=== PATIENT | male | born 1950 | race Caucasian/White ===

== ENCOUNTER 2019-09-28 14:08 | Inpatient (IN) | payer OTHER ==
[~2019-09-28] VITALS: Ht 180.3 cm; Wt 100.0 kg
[2019-09-28] MEDS ORDERED: furosemide 10 MG/1 ML 10ml inj IV ONE (14:20)
[2019-09-28 14:37] LABS: BASOPHILS # (AUTO) 0.1 X10'3 (0-0.2); BASOPHILS % (AUTO) 0.6 % (0-1); EOSINOPHILS % (AUTO) 0 % (0-6); HEMATOCRIT 38.2 % (42.0-52.0); HEMOGLOBIN 12.8 g/dl (14.0-17.9); LYMPHOCYTES # (AUTO) 0.6 X10'3 (1.1-4.8); LYMPHOCYTES % (AUTO) 6.7 % (21-51); MEAN CORPUSCULAR HEMOGLOBIN 31.4 PG (27.0-31.0); MEAN CORPUSCULAR HGB CONC 33.5 g/dL (33.0-36.5); MEAN CORPUSCULAR VOLUME 93.6 FL (78-98); MEAN PLATELET VOLUME 9.7 FL (7.4-10.4); MONOCYTES # (AUTO) 0.8 X10'3 (0-0.9); MONOCYTES % (AUTO) 8.7 % (2-12); NEUTROPHILS # (AUTO) 7.8 X10'3 (1.8-7.7); PLATELET COUNT 159 X10'3 (140-440); RED BLOOD COUNT 4.09 X10'6 (4.70-6.10); RED CELL DISTRIBUTION WIDTH 15.2 % (11.5-14.5); WHITE BLOOD COUNT 9.3 X10'3 (4.5-11.0)
[2019-09-28] MEDS ORDERED: morphine 2 MG/ML inj. syringe IV ONE (14:40)
[2019-09-28 14:53] LABS: ALANINE AMINOTRANSFERASE 60 U/L (12-78); ALBUMIN 3.4 G/DL (3.4-5.0); ALBUMIN/GLOBULIN RATIO 1.1 (1.1-1.5); ALKALINE PHOSPHATASE 38 IU/L (46-116); ANION GAP 10 (8-16); ASPARTATE AMINO TRANSFERASE 66 U/L (10-37); BILIRUBIN,TOTAL 2.2 MG/DL (0.1-1.0); BLOOD UREA NITROGEN 49 MG/DL (7-18); BUN/CREATININE RATIO 24.9 (5.4-32.0); CALCIUM 8.5 MG/DL (8.5-10.1); CHLORIDE 104 MMOL/L (99-107); CREATININE 1.97 MG/DL (0.60-1.10); GLUCOSE 264 MG/DL (70-104); POTASSIUM 4.1 MMOL/L (3.5-5.1); SODIUM 140 MMOL/L (135-145); TOTAL CARBON DIOXIDE 26.4 MMOL/L (24-32); TOTAL PROTEIN 6.4 G/DL (6.4-8.2); eGFR 34 ML/MIN
[2019-09-28] MEDS ORDERED: nitroGLYCERIN 0.2mg/hour patch TD ONE (14:55)
[2019-09-28] MEDS ORDERED: furosemide 40mg/4ml inj IV ONE (14:55)
[2019-09-28 15:01] LABS: MAGNESIUM 2.2 MG/DL (1.5-2.4)
--- NOTE | 2019-09-28 15:13 | NUR ---
Per [facility], ok to give pt 1/2 cup of ice chips & water. Provided along with an oral sponge for further use.
[2019-09-28] MEDS ORDERED: mag hydrox/Alum hydrox/simeth 30ml oral suspension PO PRN (15:25)
[2019-09-28] MEDS ORDERED: ondansetron/PF 4mg/2ml inj IV PRN (15:25)
[2019-09-28] MEDS ORDERED: magnesium hydroxide 30ml (MOM) UD suspension PO PRN (15:25)
[2019-09-28] MEDS ORDERED: acetaminophen 325mg tablet PO PRN (15:25)
--- NOTE | 2019-09-28 15:29 | NUR ---
Let patient know that we were waiting on a bed assignment for him. Patient denies any needs at this time.
--- NOTE | 2019-09-28 15:38 | NUR ---
Tried to call report PCU, notified that the nurse just found out she was getting the patient and she will call back in 5 minutes.
--- NOTE | 2019-09-28 15:54 | NUR ---
Patient arrived from ED, patient scooted over to bed. Patient VS obtained and tele monitoring initiated. Patient oriented to room and given call light. Patients greggew Gurjit at bedside. Will continue to monitor.
[2019-09-28] MEDS ORDERED: ATOR40TA72 PO (16:17)
[2019-09-28] MEDS ORDERED: RIVA20TA PO (16:17)
[2019-09-28] MEDS ORDERED: CARV6.253 PO (16:17)
[2019-09-28] MEDS ORDERED: LOSA50TA64 PO (16:17)
[2019-09-28] MEDS ORDERED: FURO40TA4 PO (16:17)
[2019-09-28] MEDS ORDERED: POTA-82 PO (16:17)
--- NOTE | 2019-09-28 16:39 | NUR ---
Spoke with Dr. Urena regarding patient in A flutter. No new orders obtained regarding the a flutter. New order obtained for nystatin.
[2019-09-28 16:47] VITALS: BP 116/79
--- NOTE | 2019-09-28 18:30 | NUR ---
Problems reprioritized. Patient report given, questions answered & plan of care reviewed with Hamzah RN.
--- NOTE | 2019-09-28 18:54 | NUR ---
3026A - [facility] - Reporting Critical Trop 0.61 increased from 0.52. Pt admitted for CHF exac. No chest pain. Exertional SOB. [phone] Hamzah RN
[2019-09-28 19:00] VITALS: BP 100/64
[2019-09-28] MEDS: furosemide 40mg/4ml inj IV SCH (19:12)
[2019-09-28] MEDS: carvedilol 6.25mg tablet PO SCH (19:12)
[2019-09-28] MEDS ORDERED: heparin, porcine 5000 units/ml vial SQ SCH (20:00)
[2019-09-28] MEDS: rivaroxaban 20mg tablet PO SCH (22:10)
[2019-09-28] MEDS: nystatin 15 GM powder TP SCH (22:14)
[2019-09-28 23:00] VITALS: BP 106/78
[2019-09-29 02:46] LABS: ALBUMIN 3.2 G/DL (3.4-5.0); ANION GAP 6 (8-16); BLOOD UREA NITROGEN 42 MG/DL (7-18); CALCIUM 8.1 MG/DL (8.5-10.1); CHLORIDE 102 MMOL/L (99-107); CREATININE 1.45 MG/DL (0.60-1.10); GLUCOSE 192 MG/DL (70-104); HEMOGLOBIN 12.4 g/dl (14.0-17.9); MEAN CORPUSCULAR HGB CONC 34.2 g/dL (33.0-36.5); POTASSIUM 3.6 MMOL/L (3.5-5.1); RED BLOOD COUNT 3.92 X10'6 (4.70-6.10); SODIUM 137 MMOL/L (135-145); TOTAL CARBON DIOXIDE 28.9 MMOL/L (24-32); WHITE BLOOD COUNT 7.8 X10'3 (4.5-11.0); eGFR 48 ML/MIN
[2019-09-29 02:48] LABS: BASOPHILS % (AUTO) 0.4 % (0-1); EOSINOPHILS % (AUTO) 0.1 % (0-6); HEMATOCRIT 36.4 % (42.0-52.0); LYMPHOCYTES # (AUTO) 0.8 X10'3 (1.1-4.8); LYMPHOCYTES % (AUTO) 10.3 % (21-51); MEAN CORPUSCULAR HEMOGLOBIN 31.7 PG (27.0-31.0); MEAN CORPUSCULAR VOLUME 92.8 FL (78-98); MEAN PLATELET VOLUME 10.2 FL (7.4-10.4); MONOCYTES # (AUTO) 0.7 X10'3 (0-0.9); MONOCYTES % (AUTO) 8.6 % (2-12); NEUTROPHILS # (AUTO) 6.3 X10'3 (1.8-7.7); NEUTROPHILS % (AUTO) 80.6 % (42-75); PLATELET COUNT 141 X10'3 (140-440); RED CELL DISTRIBUTION WIDTH 15.1 % (11.5-14.5)
[2019-09-29 02:58] VITALS: BP 112/77
--- NOTE | 2019-09-29 06:18 | NUR ---
Problems reprioritized. Patient report given, questions answered & plan of care reviewed with Sudha ADDISON.
[2019-09-29 07:00] VITALS: BP 122/80
[2019-09-29] MEDS: carvedilol 6.25mg tablet PO SCH ×2 (08:48→19:30)
[2019-09-29] MEDS: furosemide 40mg/4ml inj IV SCH ×2 (08:48→19:30)
[2019-09-29] MEDS: nystatin 15 GM powder TP SCH ×3 (08:48→20:33)
[2019-09-29] MEDS ORDERED: pneumococcal 23-VAL P-sac vacc 25 mcg/0.5ml vial IMVAC ONE (10:00)
[2019-09-29 11:00] VITALS: BP 102/65
--- NOTE | 2019-09-29 12:20 | NUR ---
PAGER ID: [phone] MESSAGE: [id number]. Pt has SOB and a Hx of asthma, can I please have a respiratory eval &trxt order or breathing trxts ? Sudha [phone]
--- NOTE | 2019-09-29 13:09 | NUR ---
PAGER ID: [phone] MESSAGE: [id number], [place]. Pt c/o SOB, with a slight wheeze. Can I have breathing trxts or RT eval and trxt? Thank you Sudha [phone]
--- NOTE | 2019-09-29 13:21 | NUR ---
paged RT RE Cierra Barnes. [id number]. Per primary nurse, pt has increasing SOB and coughing. Please come and evaluate. Thank you!
--- NOTE | 2019-09-29 13:26 | NUR ---
Rm [id number], [facility]. Patient having SOB and wheezing, new RT eval and trxt order in. Please call me for eta, Thank you.
[2019-09-29] MEDS ORDERED: albuterol 2.5 MG/3 ML nebule NEB PRN (13:45)
[2019-09-29] MEDS ORDERED: albuterol 2.5 MG/3 ML nebule ONE (13:54)
[2019-09-29 15:00] VITALS: BP 110/69
[2019-09-29 18:00] VITALS: BP 125/76
--- NOTE | 2019-09-29 18:41 | NUR ---
Problems reprioritized. Patient report given, questions answered & plan of care reviewed with Liana RN. Patient alert and oriented and stable for transfer of care. Family at bedside.
[2019-09-29] MEDS: rivaroxaban 20mg tablet PO SCH (20:33)
[2019-09-29 22:00] VITALS: BP 103/67
[2019-09-30] VITALS (7 sets, daily range): BP systolic 88–126; BP diastolic 61–77
[2019-09-30 05:24] LABS: CHLORIDE 99 MMOL/L (99-107); GLUCOSE 156 MG/DL (70-104); POTASSIUM 3.3 MMOL/L (3.5-5.1); SODIUM 137 MMOL/L (135-145); TOTAL CARBON DIOXIDE 32.2 MMOL/L (24-32)
[2019-09-30 05:25] LABS: ALBUMIN 3.2 G/DL (3.4-5.0); ANION GAP 6 (8-16); BLOOD UREA NITROGEN 40 MG/DL (7-18); BUN/CREATININE RATIO 30.1 (5.4-32.0); CALCIUM 8.2 MG/DL (8.5-10.1); CREATININE 1.33 MG/DL (0.60-1.10); eGFR 53 ML/MIN
[2019-09-30 05:32] LABS: BASOPHILS % (AUTO) 0.3 % (0-1); EOSINOPHILS # (AUTO) 0.1 X10'3 (0-0.9); EOSINOPHILS % (AUTO) 0.7 % (0-6); HEMATOCRIT 36.6 % (42.0-52.0); HEMOGLOBIN 12.5 g/dl (14.0-17.9); LYMPHOCYTES # (AUTO) 1.3 X10'3 (1.1-4.8); LYMPHOCYTES % (AUTO) 14.4 % (21-51); MEAN CORPUSCULAR HEMOGLOBIN 31.7 PG (27.0-31.0); MEAN CORPUSCULAR HGB CONC 34.2 g/dL (33.0-36.5); MEAN CORPUSCULAR VOLUME 92.6 FL (78-98); MEAN PLATELET VOLUME 9.9 FL (7.4-10.4); MONOCYTES # (AUTO) 0.5 X10'3 (0-0.9); NEUTROPHILS % (AUTO) 78.6 % (42-75); PLATELET COUNT 136 X10'3 (140-440); RED BLOOD COUNT 3.95 X10'6 (4.70-6.10); RED CELL DISTRIBUTION WIDTH 15.3 % (11.5-14.5); WHITE BLOOD COUNT 8.9 X10'3 (4.5-11.0)
--- NOTE | 2019-09-30 07:11 | NUR ---
Patient in room PCU 3026. I have received report from Liana RN and had the opportunity to ask questions and assume patient care. Patient resting in bed, unlabored respirations, offers no complaints, will continue to monitor.
[2019-09-30] MEDS: furosemide 40mg/4ml inj IV SCH ×2 (08:07→20:24)
[2019-09-30] MEDS: nystatin 15 GM powder TP SCH ×3 (08:07→20:24)
[2019-09-30] MEDS: carvedilol 6.25mg tablet PO SCH ×2 (08:07→20:23)
[2019-09-30] MEDS ORDERED: potassium Cl 20 mEq SR tablet PO STA (11:50)
--- NOTE | 2019-09-30 18:30 | NUR ---
Problems reprioritized. Patient report given, questions answered & plan of care reviewed with Benton ADDISON.
--- NOTE | 2019-09-30 18:36 | NUR ---
Patient in room PCU 3027. I have received report from Sudha ADDISON and had the opportunity to ask questions and assume patient care.
[2019-09-30] MEDS: rivaroxaban 20mg tablet PO SCH (20:23)
[2019-09-30] MEDS: potassium Cl 20 mEq SR tablet PO SCH (20:23)
[2019-10-01] MEDS: benzonatate 100mg capsule PO PRN ×2 (01:13→21:47)
[2019-10-01 02:52] VITALS: BP 122/79
[2019-10-01 05:03] LABS: BASOPHILS % (AUTO) 0.2 % (0-1); EOSINOPHILS # (AUTO) 0.1 X10'3 (0-0.9); EOSINOPHILS % (AUTO) 1.4 % (0-6); HEMATOCRIT 37.6 % (42.0-52.0); HEMOGLOBIN 12.7 g/dl (14.0-17.9); LYMPHOCYTES # (AUTO) 1.1 X10'3 (1.1-4.8); LYMPHOCYTES % (AUTO) 12.1 % (21-51); MEAN CORPUSCULAR HEMOGLOBIN 31.4 PG (27.0-31.0); MEAN CORPUSCULAR HGB CONC 33.7 g/dL (33.0-36.5); MEAN CORPUSCULAR VOLUME 93.3 FL (78-98); MEAN PLATELET VOLUME 10.1 FL (7.4-10.4); MONOCYTES # (AUTO) 0.5 X10'3 (0-0.9); MONOCYTES % (AUTO) 5.8 % (2-12); NEUTROPHILS # (AUTO) 7.6 X10'3 (1.8-7.7); NEUTROPHILS % (AUTO) 80.5 % (42-75); PLATELET COUNT 158 X10'3 (140-440); RED BLOOD COUNT 4.03 X10'6 (4.70-6.10); RED CELL DISTRIBUTION WIDTH 15.1 % (11.5-14.5); WHITE BLOOD COUNT 9.4 X10'3 (4.5-11.0)
[2019-10-01 05:24] LABS: ALBUMIN 3.3 G/DL (3.4-5.0); ANION GAP 8 (8-16); BLOOD UREA NITROGEN 37 MG/DL (7-18); BUN/CREATININE RATIO 28.9 (5.4-32.0); CALCIUM 8.6 MG/DL (8.5-10.1); CHLORIDE 99 MMOL/L (99-107); CREATININE 1.28 MG/DL (0.60-1.10); GLUCOSE 189 MG/DL (70-104); POTASSIUM 3.7 MMOL/L (3.5-5.1); SODIUM 138 MMOL/L (135-145); TOTAL CARBON DIOXIDE 31.2 MMOL/L (24-32); eGFR 56 ML/MIN
--- NOTE | 2019-10-01 06:06 | NUR ---
Problems reprioritized. Patient report given, questions answered & plan of care reviewed with Lisette ADDISON.
--- NOTE | 2019-10-01 06:15 | NUR ---
Patient in room PCU 3026. I have received report from AZAEL Orozco and had the opportunity to ask questions and assume patient care.
[2019-10-01 07:00] VITALS: BP 131/84
[2019-10-01] MEDS: carvedilol 6.25mg tablet PO SCH ×2 (07:35→21:47)
[2019-10-01] MEDS: furosemide 40mg/4ml inj IV SCH ×2 (07:35→21:47)
[2019-10-01] MEDS: nystatin 15 GM powder TP SCH ×3 (08:00→21:48)
[2019-10-01] MEDS: potassium Cl 20 mEq SR tablet PO SCH ×2 (09:26→17:34)
[2019-10-01 11:00] VITALS: BP 115/68
[2019-10-01] MEDS: atorvastatin 20mg tablet PO SCH (11:38)
[2019-10-01] MEDS: losartan 50mg tablet PO SCH (11:38)
[2019-10-01 15:00] VITALS: BP 105/70
--- NOTE | 2019-10-01 18:23 | NUR ---
Problems reprioritized. Patient report given, questions answered & plan of care reviewed with AZAEL Orozco.
--- NOTE | 2019-10-01 18:28 | NUR ---
Patient in room PCU 3026. I have received report from Lisette ADDISON and had the opportunity to ask questions and assume patient care.
[2019-10-01 18:30] VITALS: BP 109/71
[2019-10-01 21:42] VITALS: BP 103/66
[2019-10-01] MEDS: rivaroxaban 20mg tablet PO SCH (21:47)
[2019-10-02] VITALS (7 sets, daily range): BP systolic 98–117; BP diastolic 58–77
[2019-10-02 05:29] LABS: BASOPHILS % (AUTO) 0.4 % (0-1); EOSINOPHILS # (AUTO) 0.3 X10'3 (0-0.9); EOSINOPHILS % (AUTO) 2.7 % (0-6); HEMATOCRIT 37.1 % (42.0-52.0); HEMOGLOBIN 12.6 g/dl (14.0-17.9); LYMPHOCYTES # (AUTO) 1.3 X10'3 (1.1-4.8); LYMPHOCYTES % (AUTO) 13.5 % (21-51); MEAN CORPUSCULAR HEMOGLOBIN 31.3 PG (27.0-31.0); MEAN CORPUSCULAR HGB CONC 33.9 g/dL (33.0-36.5); MEAN CORPUSCULAR VOLUME 92.4 FL (78-98); MEAN PLATELET VOLUME 9.6 FL (7.4-10.4); MONOCYTES # (AUTO) 0.5 X10'3 (0-0.9); MONOCYTES % (AUTO) 5.6 % (2-12); NEUTROPHILS # (AUTO) 7.5 X10'3 (1.8-7.7); NEUTROPHILS % (AUTO) 77.8 % (42-75); PLATELET COUNT 173 X10'3 (140-440); RED BLOOD COUNT 4.02 X10'6 (4.70-6.10); RED CELL DISTRIBUTION WIDTH 15.3 % (11.5-14.5); WHITE BLOOD COUNT 9.7 X10'3 (4.5-11.0)
[2019-10-02 05:53] LABS: ALBUMIN 3.2 G/DL (3.4-5.0); ANION GAP 7 (8-16); BLOOD UREA NITROGEN 34 MG/DL (7-18); BUN/CREATININE RATIO 32.1 (5.4-32.0); CALCIUM 8.9 MG/DL (8.5-10.1); CHLORIDE 101 MMOL/L (99-107); CREATININE 1.06 MG/DL (0.60-1.10); GLUCOSE 184 MG/DL (70-104); POTASSIUM 3.8 MMOL/L (3.5-5.1); SODIUM 138 MMOL/L (135-145); TOTAL CARBON DIOXIDE 29.8 MMOL/L (24-32); eGFR 69 ML/MIN
--- NOTE | 2019-10-02 06:06 | NUR ---
Problems reprioritized. Patient report given, questions answered & plan of care reviewed with Lisette ADDISON.
--- NOTE | 2019-10-02 06:12 | NUR ---
Patient in room PCU 3026. I have received report from AZAEL Orozco and had the opportunity to ask questions and assume patient care.
[2019-10-02] MEDS: atorvastatin 20mg tablet PO SCH (07:15)
[2019-10-02] MEDS: carvedilol 6.25mg tablet PO SCH ×2 (07:16→20:10)
[2019-10-02] MEDS: furosemide 40mg/4ml inj IV SCH ×2 (07:16→20:11)
[2019-10-02] MEDS: losartan 50mg tablet PO SCH (07:16)
[2019-10-02] MEDS: nystatin 15 GM powder TP SCH ×3 (07:16→21:00)
[2019-10-02] MEDS: potassium Cl 20 mEq SR tablet PO SCH ×2 (09:25→17:49)
--- NOTE | 2019-10-02 11:17 | NUR ---
Initial: Pt admit with acute exacerbation of CHF with EF 50 to 55%. Pt currently on the heart healthy diet documented with 75-100% PO intake throughout LOS meeting nutrient needs. LBM 10/01. No nutrition diagnosis at this time. Will continue to follow. Recommendations: 1) Continue heart healthy diet 2) Routine bowel care 3) Wt per rx Addendum: 10/02/19 at [address] Amended: Links added.
--- NOTE | 2019-10-02 18:34 | NUR ---
Patient in room U 3025Z. I have received report from AZAEL Knox and had the opportunity to ask questions and assume patient care. Patient denies CP, SOB, dizziness, n/v.
--- NOTE | 2019-10-02 18:34 | NUR ---
Problems reprioritized. Patient report given, questions answered & plan of care reviewed with AZAEL Vanegas.
[2019-10-02] MEDS: benzonatate 100mg capsule PO PRN (20:10)
[2019-10-02] MEDS: rivaroxaban 20mg tablet PO SCH (20:10)
[2019-10-03 02:00] VITALS: BP 124/74
[2019-10-03 03:00] VITALS: BP 124/74
[2019-10-03] MEDS: benzonatate 100mg capsule PO PRN (04:38)
[2019-10-03 06:00] VITALS: BP 99/66
--- NOTE | 2019-10-03 06:09 | NUR ---
Problems reprioritized. Patient report given, questions answered & plan of care reviewed with AZAEL Loza. Patient stable at shift change
--- NOTE | 2019-10-03 06:10 | NUR ---
Patient in room PCU 3026. I have received report from Guilherme ADDISON and had the opportunity to ask questions and assume patient care.
[2019-10-03 06:16] LABS: BASOPHILS # (AUTO) 0.1 X10'3 (0-0.2); BASOPHILS % (AUTO) 0.5 % (0-1); EOSINOPHILS # (AUTO) 0.3 X10'3 (0-0.9); EOSINOPHILS % (AUTO) 3.2 % (0-6); HEMATOCRIT 37.8 % (42.0-52.0); HEMOGLOBIN 12.7 g/dl (14.0-17.9); LYMPHOCYTES # (AUTO) 1.4 X10'3 (1.1-4.8); LYMPHOCYTES % (AUTO) 12.5 % (21-51); MEAN CORPUSCULAR HEMOGLOBIN 31.1 PG (27.0-31.0); MEAN CORPUSCULAR HGB CONC 33.6 g/dL (33.0-36.5); MEAN CORPUSCULAR VOLUME 92.3 FL (78-98); MEAN PLATELET VOLUME 9.6 FL (7.4-10.4); MONOCYTES # (AUTO) 0.6 X10'3 (0-0.9); MONOCYTES % (AUTO) 5.6 % (2-12); NEUTROPHILS # (AUTO) 8.4 X10'3 (1.8-7.7); NEUTROPHILS % (AUTO) 78.2 % (42-75); PLATELET COUNT 208 X10'3 (140-440); RED BLOOD COUNT 4.09 X10'6 (4.70-6.10); RED CELL DISTRIBUTION WIDTH 15.1 % (11.5-14.5); WHITE BLOOD COUNT 10.8 X10'3 (4.5-11.0)
[2019-10-03 07:13] LABS: ALBUMIN 3.1 G/DL (3.4-5.0); ANION GAP 7 (8-16); BLOOD UREA NITROGEN 38 MG/DL (7-18); BUN/CREATININE RATIO 31.4 (5.4-32.0); CALCIUM 8.7 MG/DL (8.5-10.1); CHLORIDE 100 MMOL/L (99-107); CREATININE 1.21 MG/DL (0.60-1.10); GLUCOSE 177 MG/DL (70-104); POTASSIUM 3.9 MMOL/L (3.5-5.1); SODIUM 141 MMOL/L (135-145); TOTAL CARBON DIOXIDE 34.1 MMOL/L (24-32); eGFR 59 ML/MIN
[2019-10-03] MEDS: carvedilol 6.25mg tablet PO SCH (07:39)
[2019-10-03] MEDS: atorvastatin 20mg tablet PO SCH (07:39)
[2019-10-03] MEDS: losartan 50mg tablet PO SCH (07:39)
[2019-10-03] MEDS: potassium Cl 20 mEq SR tablet PO SCH (07:39)
[2019-10-03] MEDS: furosemide 40mg/4ml inj IV SCH (07:39)
[2019-10-03] MEDS: nystatin 15 GM powder TP SCH (08:00)
--- NOTE | 2019-10-03 12:30 | NUR ---
Pt transfered to [facility]. Report called to Princess at [facility]. Iv removed, canula intact. Tele-box removed and returned to tele-tech. Pt's belongings gathered and sent with pt. Pt wheeled down to lobby in wheel chair by mylene lopez and left in van with Mylene lopez to [facility].
== END 2019-10-03 12:43 | DRG 280 ==
LOC: ER 14:09 → ED HOLD 15:52 → PCU 3S 15:58
PROVIDERS: ADMIT Family Medicine; ATTEND Family Medicine
PROC: 3E0234Z Introduction of Serum, Toxoid and Vaccine into Muscle, Percutaneous Approach (ICD-10-PCS; principal; 2019-09-29)
DX: I21.A1 Myocardial infarction type 2 (principal); I50.43 Acute on chronic combined systolic (congestive) and diastolic (congestive) heart failure; I48.92 Unspecified atrial flutter; N17.9 Acute kidney failure, unspecified; I25.10 Atherosclerotic heart disease of native coronary artery without angina pectoris; E87.6 Hypokalemia; I35.0 Nonrheumatic aortic (valve) stenosis; I27.20 Pulmonary hypertension, unspecified; I11.0 Hypertensive heart disease with heart failure; J45.909 Unspecified asthma, uncomplicated; Z95.1 Presence of aortocoronary bypass graft; Z79.01 Long term (current) use of anticoagulants; Z23 Encounter for immunization; Z79.899 Other long term (current) drug therapy
CPT/HCPCS: 36415; 71045; 80048; 80053; 83735; 83880; 84484; 85025; 87081; 90732; 93005; 93306; 94640; 94667; 94668; 94760; 96374; 96375; 97110; 97116; 97161; 97530; 99285; G0378; J1940; J2270

== ENCOUNTER 2019-12-01 10:26 | Emergency (ER) | payer OTHER ==
[~2019-12-01] VITALS: Ht 181.6 cm; Wt 95.5 kg
[~2019-12-01 10:26] MED LIST: ATOR40TA72 PO; CARV6.253 PO; FURO40TA4 PO; LOSA50TA64 PO; POTA-82 PO; RIVA20TA PO
[2019-12-01 11:26] LABS: BASOPHILS # (AUTO) 0.1 X10'3 (0-0.2); BASOPHILS % (AUTO) 0.8 % (0-1); EOSINOPHILS % (AUTO) 0.2 % (0-6); HEMATOCRIT 33.8 % (42.0-52.0); HEMOGLOBIN 10.8 g/dl (14.0-17.9); LYMPHOCYTES # (AUTO) 0.6 X10'3 (1.1-4.8); LYMPHOCYTES % (AUTO) 4.4 % (21-51); MEAN CORPUSCULAR HEMOGLOBIN 29.2 PG (27.0-31.0); MEAN CORPUSCULAR HGB CONC 32.1 g/dL (33.0-36.5); MEAN PLATELET VOLUME 9.7 FL (7.4-10.4); MONOCYTES # (AUTO) 0.7 X10'3 (0-0.9); MONOCYTES % (AUTO) 5.4 % (2-12); NEUTROPHILS # (AUTO) 11.8 X10'3 (1.8-7.7); NEUTROPHILS % (AUTO) 89.2 % (42-75); PLATELET COUNT 235 X10'3 (140-440); RED BLOOD COUNT 3.72 X10'6 (4.70-6.10); RED CELL DISTRIBUTION WIDTH 18.1 % (11.5-14.5); WHITE BLOOD COUNT 13.2 X10'3 (4.5-11.0)
[2019-12-01 11:39] LABS: PARTIAL THROMBOPLASTIN TIME 34 SECONDS (22-32)
[2019-12-01 11:45] LABS: ALANINE AMINOTRANSFERASE 23 U/L (12-78); ALBUMIN 3.4 G/DL (3.4-5.0); ALBUMIN/GLOBULIN RATIO 0.9 (1.1-1.5); ALKALINE PHOSPHATASE 53 IU/L (46-116); ANION GAP 12 (8-16); ASPARTATE AMINO TRANSFERASE 25 U/L (10-37); BILIRUBIN,TOTAL 3.8 MG/DL (0.1-1.0); BLOOD UREA NITROGEN 50 MG/DL (7-18); BUN/CREATININE RATIO 24.5 (5.4-32.0); CALCIUM 9.2 MG/DL (8.5-10.1); CHLORIDE 100 MMOL/L (99-107); CREATININE 2.04 MG/DL (0.60-1.10); GLUCOSE 178 MG/DL (70-104); POTASSIUM 5.2 MMOL/L (3.5-5.1); SODIUM 135 MMOL/L (135-145); TOTAL CARBON DIOXIDE 22.7 MMOL/L (24-32); TOTAL PROTEIN 7.3 G/DL (6.4-8.2); eGFR 32 ML/MIN
[2019-12-01] MEDS ORDERED: normal saline 1000ml 1,000 ML IV ONE (12:00)
[2019-12-01] MEDS ORDERED: ceFAZolin 1GM/D5W- ADD-VANTAGE 50 ML IV ONE (12:00)
[2019-12-01 13:07] VITALS: BP 112/52
[2019-12-01] MEDS ORDERED: DOXY100C43 PO (13:32)
[2019-12-01] MEDS ORDERED: CEPH250T PO (13:32)
--- NOTE | 2019-12-01 14:13 | NUR ---
PT WAS CALLED AND MSG LEFT FOR HIM TO CALL ROSIE. PT LEFT ER BEFORE RECEIVING HIS PERSCRIPTION. PT CALLED BACK AND INFORMED THAT DR VIVAR HAD 2 PERSCRIPTIONS FOR HIM TO TAKE FOR HIS CELLULITIS. PT REQUESTED THAT RX BE CALLED INTO [facility] [address]. DOXYCYCLINE 100MG CAPSULE, 1 CAP PO Q2 HRS #20, NO REFILLS AND KEFLEX 250MG CAPSUL; 1 TAB PO Q8H #30, NO REFILLS CALLED IN TO [facility] REQUESTED. DR VIVAR NOTIFIED THAT PT CALLED BACK AND RX X2 WAS CALLED IN
== END 2019-12-01 13:09 | disposition home or self-care (01) ==
LOC: ER 10:27
DX: L03.115 Cellulitis of right lower limb (principal); I11.0 Hypertensive heart disease with heart failure; I50.9 Heart failure, unspecified; Z95.1 Presence of aortocoronary bypass graft; Z79.899 Other long term (current) drug therapy
CPT/HCPCS: 36415; 80053; 83605; 84145; 85025; 85610; 85730; 87040; 96365; 99284; J0690; J7030

== ENCOUNTER 2019-12-04 09:00 | Outpatient (CLI) | payer OTHER ==
[~2019-12-04 09:00] MED LIST changes: +CEPH250T PO; +DOXY100C43 PO
== END 2019-12-04 13:17 | disposition home or self-care (01) ==
LOC: WOUND CARE 09:00 → EDSTATUS 09:40 → WOUND CARE 13:17
PROVIDERS: ATTEND Nurse Practitioner
DX: L98.421 Non-pressure chronic ulcer of back limited to breakdown of skin (principal); L97.821 Non-pressure chronic ulcer of other part of left lower leg limited to breakdown of skin; L03.115 Cellulitis of right lower limb; E78.5 Hyperlipidemia, unspecified; I11.0 Hypertensive heart disease with heart failure; I50.9 Heart failure, unspecified; I25.2 Old myocardial infarction; Z95.1 Presence of aortocoronary bypass graft; Z79.899 Other long term (current) drug therapy
CPT/HCPCS: 93922; 93925; 93970; G0463

== ENCOUNTER 2019-12-11 09:10 | Outpatient (CLI) | payer OTHER | END 2019-12-11 10:46 | disposition home or self-care (01) | LOC: WOUND CARE 09:10 → EDSTATUS 09:40 → WOUND CARE 10:46 | PROVIDERS: ATTEND Surgery | DX: L98.421 Non-pressure chronic ulcer of back limited to breakdown of skin (principal); L97.821 Non-pressure chronic ulcer of other part of left lower leg limited to breakdown of skin; L03.115 Cellulitis of right lower limb; E78.5 Hyperlipidemia, unspecified; I11.0 Hypertensive heart disease with heart failure; I50.9 Heart failure, unspecified; I25.2 Old myocardial infarction; Z95.1 Presence of aortocoronary bypass graft; Z79.899 Other long term (current) drug therapy | CPT/HCPCS: 87070; 87075; 87077; 87102; 87186; G0463 ==

== ENCOUNTER 2019-12-18 09:21 | Outpatient (CLI) | payer OTHER ==
[~2019-12-18 09:21] MED LIST changes: -CEPH250T PO; -DOXY100C43 PO
== END 2019-12-18 10:18 | disposition home or self-care (01) ==
LOC: WOUND CARE 09:21 → EDSTATUS 09:40 → WOUND CARE 10:18
PROVIDERS: ATTEND Nurse Practitioner
DX: L97.811 Non-pressure chronic ulcer of other part of right lower leg limited to breakdown of skin (principal); L97.821 Non-pressure chronic ulcer of other part of left lower leg limited to breakdown of skin; E78.5 Hyperlipidemia, unspecified; I11.0 Hypertensive heart disease with heart failure; I50.9 Heart failure, unspecified; I25.2 Old myocardial infarction; Z95.1 Presence of aortocoronary bypass graft; Z79.899 Other long term (current) drug therapy
CPT/HCPCS: G0463

== ENCOUNTER 2019-12-25 09:25 | Outpatient (CLI) | payer OTHER | END 2019-12-25 10:05 | disposition home or self-care (01) | LOC: WOUND CARE 09:25 → EDSTATUS 09:40 → WOUND CARE 10:05 | PROVIDERS: ATTEND Nurse Practitioner | DX: L97.811 Non-pressure chronic ulcer of other part of right lower leg limited to breakdown of skin (principal); L97.821 Non-pressure chronic ulcer of other part of left lower leg limited to breakdown of skin; E78.5 Hyperlipidemia, unspecified; I11.0 Hypertensive heart disease with heart failure; I50.20 Unspecified systolic (congestive) heart failure; I25.2 Old myocardial infarction; Z95.1 Presence of aortocoronary bypass graft; Z79.899 Other long term (current) drug therapy | CPT/HCPCS: G0463 ==

== ENCOUNTER 2020-01-01 09:25 | Outpatient (CLI) | payer OTHER | END 2020-01-01 10:03 | disposition home or self-care (01) | LOC: WOUND CARE 09:25 → EDSTATUS 09:40 → WOUND CARE 10:03 | PROVIDERS: ATTEND Nurse Practitioner | DX: L97.811 Non-pressure chronic ulcer of other part of right lower leg limited to breakdown of skin (principal); L97.821 Non-pressure chronic ulcer of other part of left lower leg limited to breakdown of skin; E78.5 Hyperlipidemia, unspecified; I11.0 Hypertensive heart disease with heart failure; I50.20 Unspecified systolic (congestive) heart failure; I25.2 Old myocardial infarction; Z95.1 Presence of aortocoronary bypass graft; Z79.899 Other long term (current) drug therapy | CPT/HCPCS: G0463 ==

== ENCOUNTER 2020-01-08 09:15 | Outpatient (CLI) | payer OTHER | END 2020-01-08 09:58 | disposition home or self-care (01) | LOC: WOUND CARE 09:15 → EDSTATUS 09:40 → WOUND CARE 09:58 | PROVIDERS: ATTEND Nurse Practitioner | DX: L97.811 Non-pressure chronic ulcer of other part of right lower leg limited to breakdown of skin (principal); E78.5 Hyperlipidemia, unspecified; I11.0 Hypertensive heart disease with heart failure; I50.20 Unspecified systolic (congestive) heart failure; I25.2 Old myocardial infarction; Z95.1 Presence of aortocoronary bypass graft; Z79.899 Other long term (current) drug therapy | CPT/HCPCS: 29581 ==

== ENCOUNTER 2020-01-22 09:30 | Outpatient (CLI) | payer OTHER | END 2020-01-22 10:20 | disposition home or self-care (01) | LOC: WOUND CARE 09:30 → EDSTATUS 09:40 → WOUND CARE 10:20 | PROVIDERS: ATTEND Nurse Practitioner | DX: L97.811 Non-pressure chronic ulcer of other part of right lower leg limited to breakdown of skin (principal); E78.5 Hyperlipidemia, unspecified; I11.0 Hypertensive heart disease with heart failure; I50.20 Unspecified systolic (congestive) heart failure; I25.2 Old myocardial infarction; Z95.1 Presence of aortocoronary bypass graft; Z79.899 Other long term (current) drug therapy | CPT/HCPCS: G0463 ==

== ENCOUNTER 2020-04-20 19:02 | Inpatient (IN) | payer BC, OTHER ==
[~2020-04-20] VITALS: Ht 180.3 cm; Wt 103.5 kg
[2020-04-20 19:31] LABS: BASOPHILS % (AUTO) 0.3 % (0-1); EOSINOPHILS % (AUTO) 0.3 % (0-6); HEMATOCRIT 37.7 % (42.0-52.0); HEMOGLOBIN 11.9 g/dl (14.0-17.9); LYMPHOCYTES # (AUTO) 0.7 X10'3 (1.1-4.8); LYMPHOCYTES % (AUTO) 4.9 % (21-51); MEAN CORPUSCULAR HEMOGLOBIN 26.3 PG (27.0-31.0); MEAN CORPUSCULAR HGB CONC 31.6 g/dL (33.0-36.5); MEAN CORPUSCULAR VOLUME 83.2 FL (78-98); MEAN PLATELET VOLUME 8.5 FL (7.4-10.4); MONOCYTES # (AUTO) 0.9 X10'3 (0-0.9); MONOCYTES % (AUTO) 6.3 % (2-12); NEUTROPHILS % (AUTO) 88.2 % (42-75); PLATELET COUNT 199 X10'3 (140-440); RED BLOOD COUNT 4.53 X10'6 (4.70-6.10); RED CELL DISTRIBUTION WIDTH 20.3 % (11.5-14.5); WHITE BLOOD COUNT 14.7 X10'3 (4.5-11.0)
[2020-04-20 19:42] LABS: CLARITY,URINE CLEAR (Clear); COLOR,URINE YELLOW (Yellow); GLUCOSE, URINE NEGATIVE (Neg); KETONES,URINE NEGATIVE (Neg); LEUKOCYTE ESTERASE ,URINE NEGATIVE (Neg); NITRITES, URINE NEGATIVE (Neg); OCCULT BLOOD,URINE NEGATIVE (Neg); PROTEIN,URINE TRACE mg/dl (Neg)
[2020-04-20 19:43] LABS: UA COLLECTION TYPE STRAIGHT CATH
[2020-04-20 19:47] LABS: ALANINE AMINOTRANSFERASE 301 U/L (12-78); ALBUMIN 3.6 G/DL (3.4-5.0); ALBUMIN/GLOBULIN RATIO 1.2 (1.1-1.5); ALKALINE PHOSPHATASE 64 IU/L (46-116); ANION GAP 16 (8-16); ASPARTATE AMINO TRANSFERASE 242 U/L (10-37); BILIRUBIN,TOTAL 3.4 MG/DL (0.1-1.0); BLOOD UREA NITROGEN 91 MG/DL (7-18); BUN/CREATININE RATIO 32.9 (5.4-32.0); CALCIUM 9.1 MG/DL (8.5-10.1); CHLORIDE 99 MMOL/L (99-107); CREATININE 2.77 MG/DL (0.60-1.10); GLUCOSE 122 MG/DL (70-104); POTASSIUM 5.9 MMOL/L (3.5-5.1); SODIUM 128 MMOL/L (135-145); TOTAL PROTEIN 6.5 G/DL (6.4-8.2); eGFR 23 ML/MIN
[2020-04-20 19:50] LABS: TOTAL CELLS COUNTED 100
[2020-04-20 19:51] LABS: ANISOCYTOSIS 3+; PLATELET ESTIMATE NORMAL
[2020-04-20 19:56] LABS: TOTAL CARBON DIOXIDE 13.5 MMOL/L (24-32)
[2020-04-20 20:01] LABS: BACTERIA,URINE FEW /HPF (Neg); MUCUS STRANDS FEW /LPF (Neg); RBC,URINE NONE SEEN /HPF (0-2); SQUAMOUS EPITHELIAL CELL,UR NONE SEEN /LPF (FEW); WBC,URINE NONE SEEN /HPF (0-4)
[2020-04-20 20:02] LABS: AMORPHOUS PHOSPHATES 2+
[2020-04-20 20:03] LABS: SPERM FEW /HPF (NEGATIVE)
--- NOTE | 2020-04-20 20:18 | NUR ---
relieving RN for lunch, Dr Alonzo gave verbal order to give pt something to eat, monitor fluid intake, gave pt applesauce, 6 oz water, reanna jimenez, jitendra well, no n/v
[2020-04-20] MEDS ORDERED: furosemide 10 MG/1 ML 10ml inj IV ONE (20:20)
[2020-04-20 20:35] LABS: PARTIAL THROMBOPLASTIN TIME 35 SECONDS (22-32)
[2020-04-20] MEDS ORDERED: temazepam 15mg capsule PO PRN (21:00)
[2020-04-20 21:55] LABS: ABG BASE EXCESS -11.2 mmol/L (-2.0-2.0); ABG OXYGEN SATURATION 96.5 % (94-97); ABG PCO2 (T) 21.1 mmHg (35.0-48.0); ABG PO2 (T) 92.6 mmHg (75.0-100.0); ALLEN'S TEST POSITIVE; FCOHb 0.3 % (0.0-3.9); FMetHb 0.3 % (0.0-1.5); FO2Hb 95.9 % (94-97); TOTAL HEMOGLOBIN 12.8 G/dl (14.0-18.0)
[2020-04-20] MEDS ORDERED: metoclopramide 5 mg/ml inj IV PRN (22:05)
[2020-04-20] MEDS ORDERED: magnesium 2GM in 50ml NS 50 ML IV PRN (22:05)
[2020-04-20] MEDS ORDERED: morphine 2 MG/ML inj. syringe IV PRN ×2 (22:05)
[2020-04-20] MEDS ORDERED: magnesium 4gm in 100ml NS 100 ML IV PRN (22:05)
[2020-04-20] MEDS ORDERED: potassium CL 10mEq/100ml bag 100 ML IV PRN ×2 (22:05)
[2020-04-20] MEDS ORDERED: magnesium hydroxide 30ml (MOM) UD suspension PO PRN (22:05)
[2020-04-20] MEDS ORDERED: mag hydrox/Alum hydrox/simeth 30ml oral suspension PO PRN (22:05)
[2020-04-20] MEDS ORDERED: magnesium Cl slow-release 64mg tablet PO PRN (22:05)
[2020-04-20] MEDS ORDERED: bisacodyl 10mg suppository rectal RC PRN (22:05)
[2020-04-20] MEDS ORDERED: potassium Cl 20 mEq SR tablet PO PRN ×2 (22:05)
[2020-04-20] MEDS ORDERED: ondansetron/PF 4mg/2ml inj IV PRN (22:05)
--- NOTE | 2020-04-20 22:30 | NUR ---
Patient in room PCU 3013. I have received report from Garland ADDISON in ER and had the opportunity to ask questions and assume patient care.
[2020-04-20 22:35] LABS: HEMOGLOBIN A1C 7.3 % (4.5-6.2)
[2020-04-20 22:38] LABS: MAGNESIUM 3.1 MG/DL (1.5-2.4); PHOSPHORUS 6.2 MG/DL (2.3-4.5)
--- NOTE | 2020-04-20 22:50 | NUR ---
pt arrived to PCU unit from ER, pt is alert and oriented, pt denies any chest pain and is not in any respiratory distress at this time, will continue to monitor pt closely
[2020-04-20 23:00] VITALS: BP 108/58
[2020-04-20] MEDS: normal saline 1000ml 1,000 ML IV SCH (23:03)
[2020-04-20] MEDS: CefTRIAXone/D5W-Rocephin 1gm 50 ML IV SCH (23:03)
--- NOTE | 2020-04-20 23:48 | NUR ---
PAGER ID: [phone] MESSAGE: Lv Keira [id number] admitted with Nstemi, pt 3 HR trop is 0.26 slightly more elevated from before, which was 0.24 thank you nicole ADDISON [phone]
--- NOTE | 2020-04-20 23:54 | NUR ---
pt has reddened bilateral inner groin, tried to apply calazime cream to help protect skin, pt stated it was burning and requested it be removed. wound care order in place for pt, will continue to monitor pt
[2020-04-21 02:00] VITALS: BP 105/69
[2020-04-21 02:36] LABS: ALANINE AMINOTRANSFERASE 348 U/L (12-78); ALBUMIN 3.5 G/DL (3.4-5.0); ALBUMIN/GLOBULIN RATIO 0.9 (1.1-1.5); ALKALINE PHOSPHATASE 61 IU/L (46-116); ANION GAP 13 (8-16); ASPARTATE AMINO TRANSFERASE 274 U/L (10-37); BILIRUBIN,TOTAL 3.4 MG/DL (0.1-1.0); BLOOD UREA NITROGEN 88 MG/DL (7-18); BUN/CREATININE RATIO 33.7 (5.4-32.0); CALCIUM 8.8 MG/DL (8.5-10.1); CHLORIDE 99 MMOL/L (99-107); CHOL/HDL RATIO 5.8 (0.00-4.99); CHOLESTEROL 75 MG/DL (0-200); CREATININE 2.61 MG/DL (0.60-1.10); GLUCOSE 138 MG/DL (70-104); HDL CHOLESTEROL 13 MG/DL (35-60); LDL CHOLESTEROL 62 MG/DL (50-100); MAGNESIUM 2.8 MG/DL (1.5-2.4); PHOSPHORUS 6.1 MG/DL (2.3-4.5); POTASSIUM 5.2 MMOL/L (3.5-5.1); SODIUM 129 MMOL/L (135-145); TOTAL CARBON DIOXIDE 16.9 MMOL/L (24-32); TOTAL PROTEIN 7.2 G/DL (6.4-8.2); TRIGLYCERIDES 75 MG/DL (20-135); eGFR 24 ML/MIN
--- NOTE | 2020-04-21 02:59 | NUR ---
PAGER ID: [phone] MESSAGE: Lv Barnes 3013A 6HR trop is 0.28 thank you nicole ADDISON [phone]
[2020-04-21 06:00] VITALS: BP 99/62
--- NOTE | 2020-04-21 06:06 | NUR ---
Problems reprioritized. Patient report given, questions answered & plan of care reviewed with Marcie ADDISON.
--- NOTE | 2020-04-21 06:07 | NUR ---
Patient in room PCU 3013. I have received report from Kimberly ADDISON and had the opportunity to ask questions and assume patient care.
[2020-04-21 07:11] LABS: BASOPHILS # (AUTO) 0.1 X10'3 (0-0.2); BASOPHILS % (AUTO) 0.5 % (0-1); EOSINOPHILS % (AUTO) 0.3 % (0-6); HEMATOCRIT 37.4 % (42.0-52.0); HEMOGLOBIN 11.7 g/dl (14.0-17.9); LYMPHOCYTES # (AUTO) 0.9 X10'3 (1.1-4.8); LYMPHOCYTES % (AUTO) 6.2 % (21-51); MEAN CORPUSCULAR HEMOGLOBIN 25.9 PG (27.0-31.0); MEAN CORPUSCULAR HGB CONC 31.3 g/dL (33.0-36.5); MEAN CORPUSCULAR VOLUME 82.5 FL (78-98); MEAN PLATELET VOLUME 8.5 FL (7.4-10.4); MONOCYTES # (AUTO) 0.8 X10'3 (0-0.9); MONOCYTES % (AUTO) 5.8 % (2-12); NEUTROPHILS # (AUTO) 12.2 X10'3 (1.8-7.7); NEUTROPHILS % (AUTO) 87.2 % (42-75); PLATELET COUNT 175 X10'3 (140-440); RED BLOOD COUNT 4.53 X10'6 (4.70-6.10); RED CELL DISTRIBUTION WIDTH 20.3 % (11.5-14.5)
[2020-04-21] MEDS: K and/or MAG REPLACEMENT MC SCH ×2 (07:11→19:38)
[2020-04-21] MEDS: normal saline 1000ml 1,000 ML IV SCH (07:19)
[2020-04-21] MEDS: heparin, porcine 5000 units/ml vial SQ SCH ×2 (07:20→19:59)
[2020-04-21 07:40] LABS: ANISOCYTOSIS 3+; BURR CELLS 2+; ELLIPTOCYTES FEW; PLATELET ESTIMATE NORMAL; SCHISTOCYTES FEW
[2020-04-21] MEDS: sodium bicarbonate (8.4%) inj. 100 MEQ in dextrose 5%-water 1,000 ML IV SCH ×2 (09:08→19:59)
--- NOTE | 2020-04-21 10:10 | NUR ---
Patient left the unit to go down to CT
--- NOTE | 2020-04-21 10:28 | NUR ---
Patient arrived back from CT
--- NOTE | 2020-04-21 10:37 | NUR ---
Sent a page to Dr Giuseppe sapp PAGER ID: [phone] MESSAGE: Marcie ADDISON [phone] [id number] E Molly, pt c/o SOB, NaBicarb running at 100ml/hr, PBNP >30,000, do you want to add some Lasix? or maybe slow the fluids? thanks Addendum: 04/21/20 at 1040 by Yara Cruz RN Spoke w Dr Chin via telephone, aware of situation, no new orders received, will continue to monitor the patient closely.
[2020-04-21 11:00] VITALS: BP 100/51
--- NOTE | 2020-04-21 11:10 | NUR ---
Spoke w Dr Chin re this patient, pt c/o 12/11 pain, states wants Tylenol, received orders for Tylenol but for ONLY 1500mg/day due to LFTs. Will continue to monitor closely.
[2020-04-21] MEDS ORDERED: acetaminophen 325mg tablet PO PRN (11:15)
--- NOTE | 2020-04-21 13:40 | NUR ---
Spoke with patients son via telephone and updated him on the patients plan of care, will continue to monitor the patient closely.
--- NOTE | 2020-04-21 14:04 | NUR ---
Sent a page to Dr Giuseppe sapp PAGER ID: [phone] MESSAGE: Marcie ADDISON [phone] [id number] E Molly, HgbA1C 7.3, POC glucose 235, pt states he is not a diabetic, do you want me to order a CC diet and hyper/hypoglycemia orders? thanks Addendum: 04/21/20 at 1405 by Yara Cruz RN Spoke to Dr Chin via telephone, recieved orders to start CC diet and add the hyper/hypoglycemia orders, will continue to monitor the patient closely.
[2020-04-21] MEDS ORDERED: dextrose ORAL solution 15 GM/59 ML bottle PO PRN ×2 (14:10)
[2020-04-21] MEDS ORDERED: glucagon, human recombinant 1mg kit SUBCUT PRN (14:10)
[2020-04-21] MEDS ORDERED: MESSAGE TO PHARMACY PO ONE (14:10)
[2020-04-21] MEDS ORDERED: dextrose 50%-water 50ml dispensing syringe IV PRN ×2 (14:10)
--- NOTE | 2020-04-21 14:44 | NUR ---
Initial: Pt presented with c/o weakness with increased confusion and poor memory and admit with metabolic encephalopathy with unknown etiology, transaminitis wit hx hepatitis, RODGER with CKD, hyponatremia, and hyperkalemia. Pt with an elevated A1c of 7.3% though no PMH of diabetes listed in EMR. D/w RN, pt confirms no PMH of diabetes. Informed RN unable to provide DM education until pt provided with official dx of DM by MD. Pt now on a heart healthy CHO controlled diet, initially with 25% PO intake up to 75% at lunch today. LB 04/20. Will continue to follow closely and provide DM education following MD dx. Recommendations: 1) Continue heart healthy CHO controlled diet 2) Routine bowel care 3) Scaled weights per rx 4) DM education following MD dx of diabetes Addendum: 04/21/20 at [address] Amended: Links added.
[2020-04-21 15:16] LABS: ALANINE AMINOTRANSFERASE 310 U/L (12-78); ALBUMIN 3.4 G/DL (3.4-5.0); ALBUMIN/GLOBULIN RATIO 1.1 (1.1-1.5); ALKALINE PHOSPHATASE 74 IU/L (46-116); ANION GAP 14 (8-16); ASPARTATE AMINO TRANSFERASE 186 U/L (10-37); BILIRUBIN,TOTAL 2.8 MG/DL (0.1-1.0); BLOOD UREA NITROGEN 88 MG/DL (7-18); BUN/CREATININE RATIO 34.6 (5.4-32.0); CALCIUM 8.6 MG/DL (8.5-10.1); CHLORIDE 97 MMOL/L (99-107); CREATININE 2.54 MG/DL (0.60-1.10); GLUCOSE 232 MG/DL (70-104); POTASSIUM 5.2 MMOL/L (3.5-5.1); SODIUM 128 MMOL/L (135-145); TOTAL PROTEIN 6.4 G/DL (6.4-8.2); eGFR 25 ML/MIN
[2020-04-21 18:00] VITALS: BP 138/74
--- NOTE | 2020-04-21 18:00 | NUR ---
Spoke with patients son via telephone and updated him on the patients current status and plan of care.
--- NOTE | 2020-04-21 18:08 | NUR ---
Problems reprioritized. Patient report given, questions answered & plan of care reviewed with Debbie RN. Patient stable at time of shift change.
[2020-04-21] MEDS: insulin Lispro (HumaLOG) vial - multi-dose SQ SCH (19:08)
[2020-04-21] MEDS: nystatin 15 GM powder TP SCH (19:59)
[2020-04-21] MEDS: CefTRIAXone/D5W-Rocephin 1gm 50 ML IV SCH (21:44)
[2020-04-21] MEDS: insulin glargine (Lantus) pen - multi-dose SQ SCH (21:52)
[2020-04-21 22:00] VITALS: BP_SYST 101; BP_SYST 94; BP_DIAS 63; BP_DIAS 64
[2020-04-22 02:00] VITALS: BP 102/65
[2020-04-22 06:00] VITALS: BP 105/71
[2020-04-22 06:03] LABS: BASOPHILS # (AUTO) 0.1 X10'3 (0-0.2); EOSINOPHILS # (AUTO) 0.4 X10'3 (0-0.9); HEMOGLOBIN 11.7 g/dl (14.0-17.9); MONOCYTES # (AUTO) 0.8 X10'3 (0-0.9); NEUTROPHILS # (AUTO) 10.8 X10'3 (1.8-7.7); WHITE BLOOD COUNT 13.1 X10'3 (4.5-11.0)
[2020-04-22 06:06] LABS: BASOPHILS % (AUTO) 0.4 % (0-1); EOSINOPHILS % (AUTO) 2.8 % (0-6); HEMATOCRIT 36.7 % (42.0-52.0); LYMPHOCYTES # (AUTO) 1.1 X10'3 (1.1-4.8); LYMPHOCYTES % (AUTO) 8.1 % (21-51); MEAN CORPUSCULAR HEMOGLOBIN 26.4 PG (27.0-31.0); MEAN CORPUSCULAR VOLUME 82.6 FL (78-98); MEAN PLATELET VOLUME 8.8 FL (7.4-10.4); MONOCYTES % (AUTO) 6.2 % (2-12); NEUTROPHILS % (AUTO) 82.5 % (42-75); PLATELET COUNT 161 X10'3 (140-440); RED BLOOD COUNT 4.45 X10'6 (4.70-6.10); RED CELL DISTRIBUTION WIDTH 20.2 % (11.5-14.5)
[2020-04-22 06:16] LABS: ALANINE AMINOTRANSFERASE 288 U/L (12-78); ALBUMIN 3.3 G/DL (3.4-5.0); ALKALINE PHOSPHATASE 91 IU/L (46-116); ANION GAP 13 (8-16); ASPARTATE AMINO TRANSFERASE 142 U/L (10-37); BILIRUBIN,TOTAL 2.7 MG/DL (0.1-1.0); BLOOD UREA NITROGEN 86 MG/DL (7-18); BUN/CREATININE RATIO 38.1 (5.4-32.0); CALCIUM 8.4 MG/DL (8.5-10.1); CHLORIDE 96 MMOL/L (99-107); CREATININE 2.26 MG/DL (0.60-1.10); GLUCOSE 145 MG/DL (70-104); MAGNESIUM 2.5 MG/DL (1.5-2.4); POTASSIUM 4.8 MMOL/L (3.5-5.1); SODIUM 129 MMOL/L (135-145); TOTAL CARBON DIOXIDE 19.7 MMOL/L (24-32); TOTAL PROTEIN 6.5 G/DL (6.4-8.2); eGFR 29 ML/MIN
--- NOTE | 2020-04-22 06:28 | NUR ---
Problems reprioritized. Patient report given, questions answered & plan of care reviewed with AZAEL Patricia.
[2020-04-22 07:52] LABS: ANISOCYTOSIS 3+; PLATELET ESTIMATE NORMAL
[2020-04-22 07:53] LABS: BURR CELLS 1+; LARGE PLATELETS FEW; SCHISTOCYTES FEW
[2020-04-22 07:54] LABS: ACANTHOCYTES FEW; POLYCHROMASIA FEW
[2020-04-22] MEDS: K and/or MAG REPLACEMENT MC SCH ×2 (08:00→19:16)
[2020-04-22] MEDS: sodium bicarbonate (8.4%) inj. 100 MEQ in dextrose 5%-water 1,000 ML IV SCH ×3 (08:26→21:14)
[2020-04-22] MEDS: nystatin 15 GM powder TP SCH ×2 (08:45→19:10)
[2020-04-22] MEDS: CefTRIAXone/D5W-Rocephin 1gm 50 ML IV SCH (08:45)
[2020-04-22] MEDS: heparin, porcine 5000 units/ml vial SQ SCH (08:45)
[2020-04-22] MEDS: insulin Lispro (HumaLOG) vial - multi-dose SQ SCH ×2 (08:55→19:15)
[2020-04-22] MEDS ORDERED: pneumococcal 23-VAL P-sac vacc 25 mcg/0.5ml vial IMVAC ONE (10:00)
[2020-04-22 11:00] VITALS: BP 104/61
[2020-04-22 15:00] VITALS: BP 103/70
[2020-04-22] MEDS ORDERED: heparin 10,000 units/1 ML INJ IV PRN (15:15)
[2020-04-22] MEDS ORDERED: heparin 10,000 units/1 ML INJ IV ONE (15:15)
[2020-04-22 17:17] LABS: PARTIAL THROMBOPLASTIN TIME 36 SECONDS (22-32)
[2020-04-22] MEDS: heparin 25,000 UNIT/250ml bag 250 ML IV SCH (17:43)
[2020-04-22 18:00] VITALS: BP 109/63
--- NOTE | 2020-04-22 18:13 | NUR ---
Problems reprioritized. Patient report given, questions answered & plan of care reviewed with Debbie ADDISON.
[2020-04-22] MEDS: lactobacillus rhamnosus 10,000 MMU CELLS/CAPSULE PO SCH (19:10)
[2020-04-22] MEDS: insulin glargine (Lantus) pen - multi-dose SQ SCH (21:13)
[2020-04-22 22:00] VITALS: BP 106/62
[2020-04-23 01:53] LABS: EOSINOPHILS # (AUTO) 0.5 X10'3 (0-0.9); HEMOGLOBIN 11.2 g/dl (14.0-17.9)
[2020-04-23 01:55] LABS: BASOPHILS % (AUTO) 0.3 % (0-1); EOSINOPHILS % (AUTO) 3.7 % (0-6); HEMATOCRIT 35.2 % (42.0-52.0); LYMPHOCYTES # (AUTO) 1.2 X10'3 (1.1-4.8); LYMPHOCYTES % (AUTO) 8.6 % (21-51); MEAN CORPUSCULAR HGB CONC 31.9 g/dL (33.0-36.5); MEAN CORPUSCULAR VOLUME 81.6 FL (78-98); MONOCYTES # (AUTO) 0.7 X10'3 (0-0.9); MONOCYTES % (AUTO) 5.2 % (2-12); NEUTROPHILS % (AUTO) 82.2 % (42-75); PLATELET COUNT 135 X10'3 (140-440); RED BLOOD COUNT 4.32 X10'6 (4.70-6.10); RED CELL DISTRIBUTION WIDTH 19.7 % (11.5-14.5); WHITE BLOOD COUNT 13.4 X10'3 (4.5-11.0)
[2020-04-23 02:00] VITALS: BP 111/66
[2020-04-23 02:05] LABS: ALANINE AMINOTRANSFERASE 229 U/L (12-78); ALBUMIN 3.1 G/DL (3.4-5.0); ALBUMIN/GLOBULIN RATIO 1.1 (1.1-1.5); ALKALINE PHOSPHATASE 98 IU/L (46-116); ANION GAP 11 (8-16); ASPARTATE AMINO TRANSFERASE 94 U/L (10-37); BILIRUBIN,TOTAL 2.5 MG/DL (0.1-1.0); BLOOD UREA NITROGEN 78 MG/DL (7-18); BUN/CREATININE RATIO 41.7 (5.4-32.0); CALCIUM 8.2 MG/DL (8.5-10.1); CHLORIDE 96 MMOL/L (99-107); CREATININE 1.87 MG/DL (0.60-1.10); GLUCOSE 168 MG/DL (70-104); MAGNESIUM 2.3 MG/DL (1.5-2.4); PHOSPHORUS 4.2 MG/DL (2.3-4.5); POTASSIUM 4.4 MMOL/L (3.5-5.1); SODIUM 129 MMOL/L (135-145); TOTAL CARBON DIOXIDE 22.5 MMOL/L (24-32); TOTAL PROTEIN 5.8 G/DL (6.4-8.2); eGFR 36 ML/MIN
--- NOTE | 2020-04-23 02:59 | NUR ---
PTT is very late. I put in the order when the blood was being sent down but Lab didn't see the order so it wasn't ran on time.
[2020-04-23 03:14] LABS: ANISOCYTOSIS 2+; BURR CELLS 1+; PLATELET ESTIMATE DECREASED; POIKILOCYTOSIS 1+
[2020-04-23 03:15] LABS: POLYCHROMASIA FEW
--- NOTE | 2020-04-23 05:02 | NUR ---
notified Heparin PTT keeps coming back unreadable number. I turned off the drip in hopes that a number actually comes back. PAGER ID: [phone] MESSAGE: Kelli Barnes 3013A: Heparin PTT keeps coming back unreadable number. I turned off the drip in hopes that a number actually comes back.
[2020-04-23 06:00] VITALS: BP 101/72
[2020-04-23] MEDS: K and/or MAG REPLACEMENT MC SCH ×2 (08:00→20:00)
[2020-04-23] MEDS: nystatin 15 GM powder TP SCH ×2 (08:00→21:15)
[2020-04-23] MEDS: lactobacillus rhamnosus 10,000 MMU CELLS/CAPSULE PO SCH ×2 (08:53→20:51)
[2020-04-23] MEDS: CefTRIAXone/D5W-Rocephin 1gm 50 ML IV SCH (08:53)
[2020-04-23] MEDS: insulin Lispro (HumaLOG) vial - multi-dose SQ SCH ×3 (09:06→19:25)
[2020-04-23] MEDS: heparin 25,000 UNIT/250ml bag 250 ML IV SCH (09:10)
--- NOTE | 2020-04-23 09:20 | NUR ---
PAGER ID: [phone] MESSAGE: [id number] Makayla Barnes C/o SOB. SpO2 97% on RA. Diminished lung sounds. Pls. advise/ Belem [phone]
[2020-04-23 11:00] VITALS: BP 107/60
--- NOTE | 2020-04-23 13:01 | NUR ---
F/u: Pt still needs official dx of diabetes, d/w physician. Will continue to follow. Addendum: 04/23/20 at [address] Amended: Links added.
[2020-04-23 15:00] VITALS: BP 87/56
--- NOTE | 2020-04-23 17:28 | NUR ---
1530: Called lab to follow up on DVT PTT ordered for 1511. Was told that linter tender is in ED and they will call to see what the hold up is. 1615: charge histotechnologist received call instructing me to stop heparin gtt so that DVT PTT can be drawn. It is now 1728. There is still no PTT result. Lab section in status board shows that it has been cancelled. Calling lab to confirm what is going on.
--- NOTE | 2020-04-23 17:36 | NUR ---
Per Esther from lab; sem manager is still upstairs. Sample may be on her cart but per Esther she is "not sure. I can call her to see if it's been drawn and I can run up and bring it down. Otherwise, I don't know." Informed charge nurse.
--- NOTE | 2020-04-23 18:00 | NUR ---
received report from AZAEL Whiteside
--- NOTE | 2020-04-23 18:26 | NUR ---
Received call from chemistry with lab. States they are still unable to obtain a result for PTT. Asked if heparin gtt is still off and I confirmed it has been. They plan on doing another draw since it has been off for a while and they will run it down directly to lab. Note taken.
--- NOTE | 2020-04-23 18:47 | NUR ---
Problems reprioritized. Patient report given, questions answered & plan of care reviewed with Sam ADDISON. Reported concern with PTT. Visited patient room and found heparin was running. Per patient he is unsure if someone had touched IV pumps. States someone came in twice to draw blood. Unsure how long drip has been running since it was turned off. NOC RN aware.
[2020-04-23] MEDS: heparin, porcine 5000 units/ml vial SQ SCH (20:00)
[2020-04-23] MEDS: insulin glargine (Lantus) pen - multi-dose SQ SCH (21:22)
[2020-04-23 22:38] VITALS: BP 105/75
[2020-04-24] VITALS (11 sets, daily range): BP systolic 96–151; BP diastolic 57–75
[2020-04-24 06:00] LABS: BASOPHILS % (AUTO) 0.3 % (0-1); EOSINOPHILS # (AUTO) 0.1 X10'3 (0-0.9); HEMOGLOBIN 11.6 g/dl (14.0-17.9); LYMPHOCYTES # (AUTO) 0.9 X10'3 (1.1-4.8)
[2020-04-24 06:02] LABS: EOSINOPHILS % (AUTO) 0.7 % (0-6); HEMATOCRIT 36.4 % (42.0-52.0); LYMPHOCYTES % (AUTO) 5.9 % (21-51); MEAN CORPUSCULAR HEMOGLOBIN 25.9 PG (27.0-31.0); MEAN CORPUSCULAR HGB CONC 31.8 g/dL (33.0-36.5); MEAN CORPUSCULAR VOLUME 81.5 FL (78-98); MEAN PLATELET VOLUME 9.1 FL (7.4-10.4); MONOCYTES # (AUTO) 0.7 X10'3 (0-0.9); MONOCYTES % (AUTO) 4.5 % (2-12); NEUTROPHILS # (AUTO) 12.8 X10'3 (1.8-7.7); NEUTROPHILS % (AUTO) 88.6 % (42-75); PLATELET COUNT 146 X10'3 (140-440); RED BLOOD COUNT 4.47 X10'6 (4.70-6.10); RED CELL DISTRIBUTION WIDTH 19.9 % (11.5-14.5); WHITE BLOOD COUNT 14.5 X10'3 (4.5-11.0)
[2020-04-24 06:26] LABS: ALANINE AMINOTRANSFERASE 198 U/L (12-78); ALBUMIN 3.3 G/DL (3.4-5.0); ALBUMIN/GLOBULIN RATIO 1.1 (1.1-1.5); ALKALINE PHOSPHATASE 89 IU/L (46-116); ANION GAP 12 (8-16); ASPARTATE AMINO TRANSFERASE 83 U/L (10-37); BLOOD UREA NITROGEN 77 MG/DL (7-18); BUN/CREATININE RATIO 40.7 (5.4-32.0); CALCIUM 8.5 MG/DL (8.5-10.1); CHLORIDE 94 MMOL/L (99-107); CREATININE 1.89 MG/DL (0.60-1.10); GLUCOSE 74 MG/DL (70-104); MAGNESIUM 2.4 MG/DL (1.5-2.4); PHOSPHORUS 3.7 MG/DL (2.3-4.5); SODIUM 130 MMOL/L (135-145); TOTAL PROTEIN 6.4 G/DL (6.4-8.2); eGFR 35 ML/MIN
[2020-04-24 06:31] LABS: POTASSIUM 4.3 MMOL/L (3.5-5.1)
[2020-04-24 06:38] LABS: NUCLEATED RED BLOOD CELLS 5 /100WBC (0-0); TOTAL CELLS COUNTED 100
[2020-04-24 06:39] LABS: ANISOCYTOSIS 2+; BURR CELLS 1+; PLATELET ESTIMATE DECREASED; POIKILOCYTOSIS 1+; POLYCHROMASIA FEW
--- NOTE | 2020-04-24 06:39 | NUR ---
Problems reprioritized. Patient report given, questions answered & plan of care reviewed with AZAEL Knox.
--- NOTE | 2020-04-24 06:47 | NUR ---
Problems reprioritized. Patient report given, questions answered & plan of care reviewed with Listete ADDISON.
--- NOTE | 2020-04-24 07:14 | NUR ---
Patient in room PCU 3013. I have received report from AZAEL Vargas and had the opportunity to ask questions and assume patient care.
[2020-04-24] MEDS: K and/or MAG REPLACEMENT MC SCH ×3 (08:00→20:00)
[2020-04-24] MEDS: nystatin 15 GM powder TP SCH ×2 (08:00→20:00)
[2020-04-24] MEDS ORDERED: furosemide 20 MG/2 ML vial IV ONE (08:40)
[2020-04-24] MEDS: heparin, porcine 5000 units/ml vial SQ SCH ×2 (09:21→21:09)
[2020-04-24] MEDS: CefTRIAXone/D5W-Rocephin 1gm 50 ML IV SCH (09:22)
[2020-04-24] MEDS: lactobacillus rhamnosus 10,000 MMU CELLS/CAPSULE PO SCH ×2 (09:22→21:09)
[2020-04-24] MEDS ORDERED: furosemide inj 100 MG in normal saline 100ml IV soln 90 ML IV SCH (11:15)
[2020-04-24] MEDS ORDERED: magnesium Cl slow-release 64mg tablet PO PRN (11:50)
[2020-04-24] MEDS ORDERED: potassium CL 10mEq/100ml bag 100 ML IV PRN (11:50)
[2020-04-24] MEDS ORDERED: magnesium 4gm in 100ml NS 100 ML IV PRN (11:50)
[2020-04-24] MEDS ORDERED: potassium Cl 20 mEq SR tablet PO PRN ×2 (11:50)
[2020-04-24] MEDS: NORMAL SALINE IV SCH ×2 (11:55→21:07)
[2020-04-24] MEDS: FUROSEMIDE IV SCH ×2 (11:55→21:07)
--- NOTE | 2020-04-24 12:53 | NUR ---
Reassessment: Pt continues with SOB though metabolic acidosis has improved significantly per physician notes. Pt being evaluated for possible AVR per physician notes. Still pending DM dx at this time. Pt continues on heart healthy CHO controlled diet with fluctuating PO intake, averaging 50-75% PO intake, up to 75% x 3 most recent meals. LBM 04/20, though pt documented with no GI symptoms. PRN bowel care available. D/w dietary to send power pudding with next meal to assist with bowel regularity. Will continue to follow closely. Recommendations: 1) Continue heart healthy CHO controlled diet 2) Routine bowel care 3) Scaled weights per rx 4) DM education following MD dx of diabetes Addendum: 04/24/20 at [address] Amended: Links added.
[2020-04-24 13:09] LABS: ALBUMIN 3.4 G/DL (3.4-5.0); ANION GAP 13 (8-16); BLOOD UREA NITROGEN 73 MG/DL (7-18); BUN/CREATININE RATIO 43.2 (5.4-32.0); CALCIUM 8.7 MG/DL (8.5-10.1); CHLORIDE 96 MMOL/L (99-107); CREATININE 1.69 MG/DL (0.60-1.10); GLUCOSE 104 MG/DL (70-104); MAGNESIUM 2.5 MG/DL (1.5-2.4); PHOSPHORUS 3.8 MG/DL (2.3-4.5); POTASSIUM 4.4 MMOL/L (3.5-5.1); SODIUM 131 MMOL/L (135-145); TOTAL CARBON DIOXIDE 21.7 MMOL/L (24-32); eGFR 40 ML/MIN
[2020-04-24] MEDS: insulin Lispro (HumaLOG) vial - multi-dose SQ SCH (14:04)
--- NOTE | 2020-04-24 18:01 | NUR ---
Problems reprioritized. Patient report given, questions answered & plan of care reviewed with Mark RN.
--- NOTE | 2020-04-24 18:30 | NUR ---
Patient in room PCU 3013. I have received report from Lisette ADDISON and had the opportunity to ask questions and assume patient care.
--- NOTE | 2020-04-24 19:00 | NUR ---
can not find food tray or food slip, BS was 103, will not give insulin due to unknown amount of carbs consumed.
[2020-04-24 19:41] LABS: ALBUMIN 3.4 G/DL (3.4-5.0); ANION GAP 10 (8-16); BLOOD UREA NITROGEN 75 MG/DL (7-18); BUN/CREATININE RATIO 42.4 (5.4-32.0); CALCIUM 8.7 MG/DL (8.5-10.1); CHLORIDE 96 MMOL/L (99-107); CREATININE 1.77 MG/DL (0.60-1.10); GLUCOSE 91 MG/DL (70-104); MAGNESIUM 2.5 MG/DL (1.5-2.4); POTASSIUM 4.1 MMOL/L (3.5-5.1); SODIUM 131 MMOL/L (135-145); TOTAL CARBON DIOXIDE 24.7 MMOL/L (24-32); eGFR 38 ML/MIN
[2020-04-24 19:42] LABS: PHOSPHORUS 4.1 MG/DL (2.3-4.5)
[2020-04-24] MEDS: insulin glargine (Lantus) pen - multi-dose SQ SCH (21:13)
[2020-04-25] VITALS (11 sets, daily range): BP systolic 98–145; BP diastolic 53–77
[2020-04-25 01:14] LABS: ALANINE AMINOTRANSFERASE 167 U/L (12-78); ALBUMIN 3.4 G/DL (3.4-5.0); ALKALINE PHOSPHATASE 71 IU/L (46-116); ANION GAP 13 (8-16); ASPARTATE AMINO TRANSFERASE 65 U/L (10-37); BILIRUBIN,TOTAL 4.1 MG/DL (0.1-1.0); BLOOD UREA NITROGEN 76 MG/DL (7-18); BUN/CREATININE RATIO 42.2 (5.4-32.0); CALCIUM 8.7 MG/DL (8.5-10.1); CHLORIDE 96 MMOL/L (99-107); GLUCOSE 68 MG/DL (70-104); MAGNESIUM 2.4 MG/DL (1.5-2.4); POTASSIUM 4.1 MMOL/L (3.5-5.1); SODIUM 132 MMOL/L (135-145); TOTAL CARBON DIOXIDE 23.1 MMOL/L (24-32); eGFR 37 ML/MIN
[2020-04-25 01:15] LABS: ALBUMIN/GLOBULIN RATIO 1.1 (1.1-1.5); PHOSPHORUS 4.2 MG/DL (2.3-4.5); TOTAL PROTEIN 6.4 G/DL (6.4-8.2)
[2020-04-25 01:28] LABS: BASOPHILS # (AUTO) 0.1 X10'3 (0-0.2); HEMOGLOBIN 11.9 g/dl (14.0-17.9); MONOCYTES # (AUTO) 0.6 X10'3 (0-0.9); PLATELET COUNT 145 X10'3 (140-440)
[2020-04-25 01:30] LABS: BASOPHILS % (AUTO) 0.4 % (0-1); EOSINOPHILS # (AUTO) 0.1 X10'3 (0-0.9); HEMATOCRIT 37.5 % (42.0-52.0); LYMPHOCYTES # (AUTO) 0.9 X10'3 (1.1-4.8); LYMPHOCYTES % (AUTO) 6.2 % (21-51); MEAN CORPUSCULAR HEMOGLOBIN 26.2 PG (27.0-31.0); MEAN CORPUSCULAR HGB CONC 31.8 g/dL (33.0-36.5); MEAN CORPUSCULAR VOLUME 82.3 FL (78-98); MEAN PLATELET VOLUME 9.5 FL (7.4-10.4); MONOCYTES % (AUTO) 4.3 % (2-12); NEUTROPHILS # (AUTO) 12.8 X10'3 (1.8-7.7); NEUTROPHILS % (AUTO) 88.1 % (42-75); RED BLOOD COUNT 4.55 X10'6 (4.70-6.10); RED CELL DISTRIBUTION WIDTH 20.3 % (11.5-14.5); WHITE BLOOD COUNT 14.5 X10'3 (4.5-11.0)
[2020-04-25 03:04] LABS: ANISOCYTOSIS 3+; BURR CELLS 1+; NUCLEATED RED BLOOD CELLS 3 /100WBC (0-0); PLATELET ESTIMATE NORMAL; POIKILOCYTOSIS 1+; POLYCHROMASIA FEW; SCHISTOCYTES FEW; TOTAL CELLS COUNTED 100
[2020-04-25 03:05] LABS: ELLIPTOCYTES FEW; LARGE PLATELETS FEW
--- NOTE | 2020-04-25 06:25 | NUR ---
Problems reprioritized. Patient report given, questions answered & plan of care reviewed with Timo RN.
--- NOTE | 2020-04-25 06:30 | NUR ---
Patient in room PCU 3013. [facility] had the opportunity to ask questions and assume patient care.
[2020-04-25 06:58] LABS: ALBUMIN 3.4 G/DL (3.4-5.0); ANION GAP 13 (8-16); BLOOD UREA NITROGEN 77 MG/DL (7-18); CALCIUM 8.8 MG/DL (8.5-10.1); CHLORIDE 98 MMOL/L (99-107); CREATININE 1.57 MG/DL (0.60-1.10); GLUCOSE 51 MG/DL (70-104); MAGNESIUM 2.4 MG/DL (1.5-2.4); PHOSPHORUS 4.4 MG/DL (2.3-4.5); POTASSIUM 3.4 MMOL/L (3.5-5.1); SODIUM 135 MMOL/L (135-145); eGFR 44 ML/MIN
--- NOTE | 2020-04-25 07:26 | NUR ---
PAGER ID: [phone] MESSAGE: DR. GAMEZ, 3013A/REJI, UNABLE TO VOID, BLADDER SCAN >1050, ST CATH AT 0550 1150 OUT. NEAD APONTE PROTOCOL ORDER FOR RETENTION? ALSO, AM BG 48, GAVE 2 DEX 4 PO, REPEAT 47, PUSHING AMP D 50 NOW. ELEANOR [id number]. TY
[2020-04-25] MEDS ORDERED: LIDOcaine 2% 10ml TOPICAL JELLY (Urojet) TP ONE ×2 (07:35→10:45)
--- NOTE | 2020-04-25 07:43 | NUR ---
0700 blood glucose b47, primary RN notified, administered 30g fast acting carbs, blood sugar recheck in 15 minutes showed blood sugar 48, primary RN notified, 1 amp D50 administered IV, recheck in 15 minutes showed blood glucose 217, primary RN notified.
[2020-04-25] MEDS: K and/or MAG REPLACEMENT MC SCH ×4 (08:00→20:00)
[2020-04-25] MEDS: lactobacillus rhamnosus 10,000 MMU CELLS/CAPSULE PO SCH ×2 (08:00→19:30)
[2020-04-25] MEDS: CefTRIAXone/D5W-Rocephin 1gm 50 ML IV SCH (08:02)
[2020-04-25] MEDS: nystatin 15 GM powder TP SCH ×2 (08:03→19:30)
[2020-04-25] MEDS: heparin, porcine 5000 units/ml vial SQ SCH (08:03)
[2020-04-25] MEDS: NORMAL SALINE IV SCH ×2 (08:05→19:29)
[2020-04-25] MEDS: FUROSEMIDE IV SCH ×2 (08:05→19:29)
[2020-04-25 12:07] LABS: ALBUMIN 3.3 G/DL (3.4-5.0); ANION GAP 12 (8-16); BLOOD UREA NITROGEN 77 MG/DL (7-18); BUN/CREATININE RATIO 42.3 (5.4-32.0); CALCIUM 8.8 MG/DL (8.5-10.1); CHLORIDE 97 MMOL/L (99-107); CREATININE 1.82 MG/DL (0.60-1.10); GLUCOSE 200 MG/DL (70-104); MAGNESIUM 2.4 MG/DL (1.5-2.4); PHOSPHORUS 4.7 MG/DL (2.3-4.5); POTASSIUM 3.8 MMOL/L (3.5-5.1); SODIUM 132 MMOL/L (135-145); TOTAL CARBON DIOXIDE 23.4 MMOL/L (24-32); eGFR 37 ML/MIN
--- NOTE | 2020-04-25 14:11 | NUR ---
F/u(04/25): JOHN d/w RN who reports still unsure if pt aware of DM DX mainly has received education regarding Glu. Written DM diet ed w/ RD contact information placed in pt chart; would benefit from verbal ed following DX prior to discharge. Addendum: 04/25/20 at [address] Amended: Links added.
[2020-04-25] MEDS: rivaroxaban 15mg tablet PO SCH (18:00)
--- NOTE | 2020-04-25 18:24 | NUR ---
Problems reprioritized. Patient report given, questions answered & plan of care reviewed with AZAEL HUMPHREY.
[2020-04-25 18:32] LABS: ALBUMIN 3.3 G/DL (3.4-5.0); ANION GAP 12 (8-16); BLOOD UREA NITROGEN 79 MG/DL (7-18); BUN/CREATININE RATIO 40.7 (5.4-32.0); CALCIUM 8.7 MG/DL (8.5-10.1); CHLORIDE 95 MMOL/L (99-107); CREATININE 1.94 MG/DL (0.60-1.10); GLUCOSE 149 MG/DL (70-104); MAGNESIUM 2.3 MG/DL (1.5-2.4); PHOSPHORUS 4.6 MG/DL (2.3-4.5); POTASSIUM 4.1 MMOL/L (3.5-5.1); SODIUM 130 MMOL/L (135-145); eGFR 34 ML/MIN
[2020-04-25] MEDS: insulin glargine (Lantus) pen - multi-dose SQ SCH (21:00)
[2020-04-25] MEDS ORDERED: LORazepam 0.5 MG tablet PO PRN (21:55)
[2020-04-26 00:31] LABS: ALBUMIN 3.4 G/DL (3.4-5.0); ANION GAP 14 (8-16); BLOOD UREA NITROGEN 83 MG/DL (7-18); BUN/CREATININE RATIO 42.1 (5.4-32.0); CALCIUM 9.1 MG/DL (8.5-10.1); CHLORIDE 96 MMOL/L (99-107); CREATININE 1.97 MG/DL (0.60-1.10); GLUCOSE 200 MG/DL (70-104); MAGNESIUM 2.6 MG/DL (1.5-2.4); PHOSPHORUS 4.7 MG/DL (2.3-4.5); POTASSIUM 4.3 MMOL/L (3.5-5.1); SODIUM 130 MMOL/L (135-145); TOTAL CARBON DIOXIDE 20.5 MMOL/L (24-32); eGFR 34 ML/MIN
[2020-04-26 02:00] VITALS: BP 120/64
[2020-04-26 06:04] LABS: ALANINE AMINOTRANSFERASE 146 U/L (12-78); ALKALINE PHOSPHATASE 115 IU/L (46-116); ASPARTATE AMINO TRANSFERASE 61 U/L (10-37)
[2020-04-26 06:11] LABS: ALBUMIN/GLOBULIN RATIO 1.1 (1.1-1.5); TOTAL PROTEIN 6.4 G/DL (6.4-8.2)
[2020-04-26] MEDS: FUROSEMIDE IV SCH (06:19)
[2020-04-26] MEDS: NORMAL SALINE IV SCH (06:19)
--- NOTE | 2020-04-26 06:22 | NUR ---
Problems reprioritized. Patient report given, questions answered & plan of care reviewed with Lizz ADDISON.
--- NOTE | 2020-04-26 06:29 | NUR ---
Patient in room PCU 3013. I have received report from Kimberly ADDISON and had the opportunity to ask questions and assume patient care. Patient awake in bed. Offers no complaints. All immediate needs met.
[2020-04-26 07:00] VITALS: BP 106/69
[2020-04-26 07:24] LABS: ALBUMIN 3.3 G/DL (3.4-5.0); ANION GAP 14 (8-16); BLOOD UREA NITROGEN 86 MG/DL (7-18); BUN/CREATININE RATIO 41.5 (5.4-32.0); CALCIUM 8.9 MG/DL (8.5-10.1); CHLORIDE 95 MMOL/L (99-107); CREATININE 2.07 MG/DL (0.60-1.10); GLUCOSE 159 MG/DL (70-104); MAGNESIUM 2.5 MG/DL (1.5-2.4); POTASSIUM 4.5 MMOL/L (3.5-5.1); SODIUM 130 MMOL/L (135-145); TOTAL CARBON DIOXIDE 21.2 MMOL/L (24-32); eGFR 32 ML/MIN
[2020-04-26] MEDS: K and/or MAG REPLACEMENT MC SCH ×4 (08:00→20:00)
[2020-04-26] MEDS: CefTRIAXone/D5W-Rocephin 1gm 50 ML IV SCH (09:20)
[2020-04-26] MEDS: nystatin 15 GM powder TP SCH ×2 (09:21→20:07)
[2020-04-26] MEDS: lactobacillus rhamnosus 10,000 MMU CELLS/CAPSULE PO SCH ×2 (09:21→20:05)
--- NOTE | 2020-04-26 09:50 | NUR ---
New orders from Dr. Dhaliwal D/C lasix gtt colace 100 mg BID D/C smiley catheter
--- NOTE | 2020-04-26 10:00 | NUR ---
Ivy catheter discontinued. Patient tolerated well. Ivy tip intact. 250 dark italo urine. Will monitor for 1st void.
[2020-04-26] MEDS: docusate sod 100mg capsule PO SCH ×2 (10:20→20:05)
[2020-04-26 11:00] VITALS: BP 133/77
[2020-04-26 12:45] LABS: ALBUMIN 1.6 G/DL (3.4-5.0); ANION GAP 16 (8-16); BLOOD UREA NITROGEN 89 MG/DL (7-18); BUN/CREATININE RATIO 39.6 (5.4-32.0); CALCIUM 8.9 MG/DL (8.5-10.1); CHLORIDE 95 MMOL/L (99-107); CREATININE 2.25 MG/DL (0.60-1.10); GLUCOSE 207 MG/DL (70-104); MAGNESIUM 2.6 MG/DL (1.5-2.4); POTASSIUM 4.8 MMOL/L (3.5-5.1); SODIUM 129 MMOL/L (135-145); TOTAL CARBON DIOXIDE 18.2 MMOL/L (24-32); eGFR 29 ML/MIN
[2020-04-26 12:46] LABS: PHOSPHORUS 5.4 MG/DL (2.3-4.5)
[2020-04-26 15:00] VITALS: BP 106/65
--- NOTE | 2020-04-26 17:05 | NUR ---
Bladder scan 140 ml. Patient encouraged oral intake. Patient states he has no urge to void. Will continue to monitor.
[2020-04-26] MEDS: rivaroxaban 15mg tablet PO SCH (18:00)
[2020-04-26 18:19] LABS: ALBUMIN 3.4 G/DL (3.4-5.0); ANION GAP 15 (8-16); BLOOD UREA NITROGEN 93 MG/DL (7-18); BUN/CREATININE RATIO 40.8 (5.4-32.0); CALCIUM 9.1 MG/DL (8.5-10.1); CHLORIDE 94 MMOL/L (99-107); CREATININE 2.28 MG/DL (0.60-1.10); GLUCOSE 163 MG/DL (70-104); MAGNESIUM 2.6 MG/DL (1.5-2.4); POTASSIUM 5.4 MMOL/L (3.5-5.1); SODIUM 127 MMOL/L (135-145); TOTAL CARBON DIOXIDE 17.9 MMOL/L (24-32); eGFR 28 ML/MIN
[2020-04-26 18:36] LABS: PHOSPHORUS 5.9 MG/DL (2.3-4.5)
--- NOTE | 2020-04-26 18:46 | NUR ---
Patient in room PCU 3013. I have received report from Lizz ADDISON and had the opportunity to ask questions and assume patient care.
[2020-04-26 18:50] VITALS: BP 97/68
[2020-04-26] MEDS: insulin glargine (Lantus) pen - multi-dose SQ SCH (20:18)
[2020-04-26 22:40] VITALS: BP 107/72
[2020-04-27] VITALS (7 sets, daily range): BP systolic 97–113; BP diastolic 41–69
--- NOTE | 2020-04-27 05:15 | NUR ---
Student documentation: I have reviewed and agree with all interventions, assessments performed and documented by Heidi ADDISON. Student Medication Administration: For this medication-pass time frame, all medication were reviewed, dispensed, administered and documented per hospital policy by Heidi ADDISON.
--- NOTE | 2020-04-27 06:07 | NUR ---
Problems reprioritized. Patient report given, questions answered & plan of care reviewed with Lizz ADDISON.
[2020-04-27 06:16] LABS: ALANINE AMINOTRANSFERASE 253 U/L (12-78); ALBUMIN 3.3 G/DL (3.4-5.0); ALKALINE PHOSPHATASE 70 IU/L (46-116); ANION GAP 18 (8-16); ASPARTATE AMINO TRANSFERASE 237 U/L (10-37); BLOOD UREA NITROGEN 101 MG/DL (7-18); BUN/CREATININE RATIO 40.6 (5.4-32.0); CALCIUM 9.3 MG/DL (8.5-10.1); CHLORIDE 92 MMOL/L (99-107); CREATININE 2.49 MG/DL (0.60-1.10); GLUCOSE 148 MG/DL (70-104); MAGNESIUM 2.6 MG/DL (1.5-2.4); SODIUM 127 MMOL/L (135-145); TOTAL CARBON DIOXIDE 17.2 MMOL/L (24-32); eGFR 26 ML/MIN
[2020-04-27 06:22] LABS: ALBUMIN/GLOBULIN RATIO 1.1 (1.1-1.5); PHOSPHORUS 6.7 MG/DL (2.3-4.5); POTASSIUM 5.5 MMOL/L (3.5-5.1); TOTAL PROTEIN 6.3 G/DL (6.4-8.2)
[2020-04-27] MEDS: K and/or MAG REPLACEMENT MC SCH ×4 (08:00→19:18)
[2020-04-27] MEDS: CefTRIAXone/D5W-Rocephin 1gm 50 ML IV SCH (09:14)
[2020-04-27] MEDS: docusate sod 100mg capsule PO SCH ×2 (09:14→21:49)
[2020-04-27] MEDS: lactobacillus rhamnosus 10,000 MMU CELLS/CAPSULE PO SCH ×2 (09:14→21:49)
[2020-04-27] MEDS: nystatin 15 GM powder TP SCH ×2 (09:15→21:49)
[2020-04-27] MEDS ORDERED: normal saline 1000ml 1,000 ML IV ONE (09:55)
[2020-04-27] MEDS: normal saline 1000ml 1,000 ML IV SCH ×2 (10:56→14:49)
--- NOTE | 2020-04-27 14:34 | NUR ---
Reassessment: F/u with verbal discussion with MD regarding pt needing official dx prior to RD being able to provide pt with diabetes education, though noted that pt now documented as confused with decreased mentation per physical assessment. Patient's PO intake fluctuates, improved since last RD assessment to 75-100% however most recently down to 25% with refusals x 3 most recent meals. Decline in PO intake is likely r/t decreased mentation. [facility] 04/26. Will continue to follow closely. Recommendations: 1) Continue heart healthy CHO controlled diet; monitor need for renal diet 2) Routine bowel care 3) Scaled weights per rx 4) DM education following physician dx of diabetes Addendum: 04/27/20 at [address] Amended: Links added.
--- NOTE | 2020-04-27 15:21 | NUR ---
PAGER ID: [phone] MESSAGE: RE: Lv Judge [phone]. Patient complaining 7/10 pain to lower extremities. Only PRN is Tylenol and patient has elevated liver enzymes. Also patient has 237 urine in bladder after bladder scan. Patient hasn't voided today. Lizz [id number]
[2020-04-27] MEDS ORDERED: traMADol 50MG tablet PO PRN (15:25)
[2020-04-27] MEDS ORDERED: LIDOcaine 2% 10ml TOPICAL JELLY (Urojet) TP ONE (15:25)
[2020-04-27] MEDS: insulin glargine (Lantus) pen - multi-dose SQ SCH (21:00)
[2020-04-27] MEDS ORDERED: tamsulosin 0.4mg capsule PO SCH (21:00)
[2020-04-27] MEDS: rivaroxaban 15mg tablet PO SCH (21:49)
--- NOTE | 2020-04-27 22:59 | NUR ---
Patient in room PCU 3013. I have received report from Lizz ADDISON and had the opportunity to ask questions and assume patient care.
[2020-04-28] VITALS (20 sets, daily range): BP systolic 69–92; BP diastolic 38–62
[2020-04-28] MEDS: normal saline 1000ml 1,000 ML IV SCH ×2 (05:28→17:45)
[2020-04-28 06:23] LABS: ALANINE AMINOTRANSFERASE 288 U/L (12-78); ALBUMIN 3.1 G/DL (3.4-5.0); ALKALINE PHOSPHATASE 70 IU/L (46-116); ANION GAP 16 (8-16); ASPARTATE AMINO TRANSFERASE 213 U/L (10-37); BILIRUBIN,TOTAL 4.3 MG/DL (0.1-1.0); BLOOD UREA NITROGEN 111 MG/DL (7-18); BUN/CREATININE RATIO 40.1 (5.4-32.0); CALCIUM 8.5 MG/DL (8.5-10.1); CHLORIDE 92 MMOL/L (99-107); CREATININE 2.77 MG/DL (0.60-1.10); GLUCOSE 172 MG/DL (70-104); SODIUM 127 MMOL/L (135-145); TOTAL CARBON DIOXIDE 18.6 MMOL/L (24-32); eGFR 23 ML/MIN
[2020-04-28 06:25] LABS: ALBUMIN/GLOBULIN RATIO 1.1 (1.1-1.5); PHOSPHORUS 6.5 MG/DL (2.3-4.5); POTASSIUM 5.7 MMOL/L (3.5-5.1); TOTAL PROTEIN 5.9 G/DL (6.4-8.2)
--- NOTE | 2020-04-28 06:45 | NUR ---
Problems reprioritized. Patient report given, questions answered & plan of care reviewed with Monserrat ADDISON. Patient was asleep during report and no acute distress noted.
--- NOTE | 2020-04-28 06:45 | NUR ---
Patient in room PCU 3013. I have received report from Deepa ADDISON and had the opportunity to ask questions and assume patient care.
[2020-04-28] MEDS: CefTRIAXone/D5W-Rocephin 1gm 50 ML IV SCH (07:03)
[2020-04-28] MEDS: docusate sod 100mg capsule PO SCH ×3 (07:04→20:56)
[2020-04-28] MEDS: K and/or MAG REPLACEMENT MC SCH ×4 (08:00→20:00)
[2020-04-28] MEDS ORDERED: sodium bicarbonate (8.4%) inj. 100 MEQ in sodium chloride 0.45% 900 ML IV SCH (08:04)
[2020-04-28] MEDS ORDERED: insulin regular, human 10 units/0.1 ml syringe IV ONE (08:05)
[2020-04-28] MEDS ORDERED: dextrose 50%-water 50ml dispensing syringe IV ONE (08:05)
[2020-04-28] MEDS: lactobacillus rhamnosus 10,000 MMU CELLS/CAPSULE PO SCH ×2 (08:39→20:56)
[2020-04-28] MEDS: nystatin 15 GM powder TP SCH ×2 (09:00→20:56)
--- NOTE | 2020-04-28 11:32 | NUR ---
Message sent to Dr Dhaliwal about pt BP R is 80/30 and L is 79/41. His respirations are shallow and he is using his accessory mucles. He wakes to his name and answers questions but he is groggy he states he feels really tired.
[2020-04-28] MEDS ORDERED: normal saline 1000ml 1,000 ML IV ONE (11:40)
--- NOTE | 2020-04-28 11:40 | NUR ---
New orders from Dr. Dhaliwal 1L NS bolus, CXR, ABG, ammonia.
[2020-04-28 12:16] LABS: ABG BASE EXCESS -7.8 mmol/L (-2.0-2.0); ABG HCO3 15.3 mmol/L (22.0-26.0); ABG OXYGEN SATURATION 96.3 % (94-97); ABG PCO2 (T) 24.3 mmHg (35.0-48.0); ABG PO2 (T) 82.7 mmHg (75.0-100.0); ALLEN'S TEST POSITIVE; FCOHb 0.5 % (0.0-3.9); FMetHb 0.1 % (0.0-1.5); FO2Hb 95.7 % (94-97); PATIENT TEMPERATURE 36.6; TOTAL HEMOGLOBIN 11.3 G/dl (14.0-18.0)
[2020-04-28] MEDS ORDERED: DOBUTamine-DoBUTrex 500mg/D5W 250 ML IV SCH ×2 (12:25→15:30)
[2020-04-28 14:34] LABS: CLARITY,URINE CLOUDY (Clear); COLOR,URINE YELLOW (Yellow); GLUCOSE, URINE NEGATIVE (Neg); KETONES,URINE NEGATIVE (Neg); LEUKOCYTE ESTERASE ,URINE NEGATIVE (Neg); NITRITES, URINE NEGATIVE (Neg); OCCULT BLOOD,URINE LARGE (Neg); PROTEIN,URINE 30 mg/dl (Neg)
[2020-04-28 14:37] LABS: UA COLLECTION TYPE NON-SPECIFIED
[2020-04-28 14:43] LABS: RBC,URINE TNTC /HPF (0-2)
[2020-04-28 14:45] LABS: SODIUM,URINE RANDOM < 15 MEQ/L; SPERM FEW /HPF (NEGATIVE); TOTAL PROTEIN,URINE RANDOM 75.7 MG/DL
[2020-04-28 14:46] LABS: BACTERIA,URINE 2+ /HPF (Neg); SQUAMOUS EPITHELIAL CELL,UR FEW /LPF (FEW); TRANSITIONAL EPI CELLS,URINE FEW /HPF
[2020-04-28 14:47] LABS: COARSE GRANULAR CAST 0-3 /LPF (NEGATIVE); STARCH,URINE FEW /HPF (NEGATIVE)
--- NOTE | 2020-04-28 15:31 | NUR ---
New order from Dr. Dhaliwal: Increase dobutamine to 5 mcg/kg/min.
[2020-04-28 15:47] LABS: UA EOSINOPHILS NO EOS /HPF
--- NOTE | 2020-04-28 16:45 | NUR ---
PAGER ID: [phone] MESSAGE: [id number] [facility] Update on [facility], BP . Dottie ADDISON
--- NOTE | 2020-04-28 17:05 | NUR ---
Pt BP still very low with Map <60 Pt has irreg resp that are shallow and he is using assessory muscle. He has to be woken up cannot stay awake. Rapid Called
--- NOTE | 2020-04-28 17:09 | NUR ---
WENT TO PATIENTS RM FOR RAPID CKED PATIENT NO TX GIVEN WAITING FOR TRANSPORT TO ANOTHER HOSPITAL Addendum: 04/28/20 at 1710 by Deepika Anderson RT Amended: Links added.
[2020-04-28] MEDS: rivaroxaban 15mg tablet PO SCH (18:00)
--- NOTE | 2020-04-28 18:00 | NUR ---
Problems reprioritized. Patient report given, questions answered & plan of care reviewed with Robina ADDISON.
--- NOTE | 2020-04-28 18:02 | NUR ---
[facility] Transfer Center: [phone] BED: ICU 6344 Accepting ICU: Dr. Morton Cardiac surgeon: Dr. Powell and Dr. Lawson RN to call [facility] for air transport and call transfer center with worm picker ETA.
--- NOTE | 2020-04-28 18:30 | NUR ---
Patient in room CICU 2013. I have received report from Monserrat ADDISON and had the opportunity to ask questions and assume patient care.
[2020-04-28] MEDS ORDERED: albumin (human) 25% 100 ML IV solution IV ONE (19:25)
[2020-04-28 19:38] LABS: EOSINOPHILS % (AUTO) 0 % (0-6); HEMOGLOBIN 10.6 g/dl (14.0-17.9); MEAN CORPUSCULAR HEMOGLOBIN 25.2 PG (27.0-31.0)
[2020-04-28 19:39] LABS: BASOPHILS # (AUTO) 0.1 X10'3 (0-0.2); BASOPHILS % (AUTO) 0.4 % (0-1); HEMATOCRIT 34.6 % (42.0-52.0); LYMPHOCYTES # (AUTO) 0.5 X10'3 (1.1-4.8); LYMPHOCYTES % (AUTO) 2.5 % (21-51); MEAN CORPUSCULAR HGB CONC 30.7 g/dL (33.0-36.5); MEAN PLATELET VOLUME 9.4 FL (7.4-10.4); MONOCYTES # (AUTO) 1.1 X10'3 (0-0.9); NEUTROPHILS # (AUTO) 19.6 X10'3 (1.8-7.7); NEUTROPHILS % (AUTO) 92.1 % (42-75); PLATELET COUNT 89 X10'3 (140-440); RED BLOOD COUNT 4.22 X10'6 (4.70-6.10); WHITE BLOOD COUNT 21.3 X10'3 (4.5-11.0)
[2020-04-28 19:55] LABS: ALBUMIN 2.9 G/DL (3.4-5.0); ANION GAP 15 (8-16); BLOOD UREA NITROGEN 114 MG/DL (7-18); BUN/CREATININE RATIO 40.7 (5.4-32.0); CALCIUM 8.2 MG/DL (8.5-10.1); CHLORIDE 94 MMOL/L (99-107); GLUCOSE 139 MG/DL (70-104); NUCLEATED RED BLOOD CELLS 2 /100WBC (0-0); POTASSIUM 5.6 MMOL/L (3.5-5.1); SODIUM 128 MMOL/L (135-145); TOTAL CELLS COUNTED 100; eGFR 22 ML/MIN
[2020-04-28 19:56] LABS: ANISOCYTOSIS 3+; BURR CELLS 1+; ELLIPTOCYTES FEW; PLATELET ESTIMATE DECREASED; POIKILOCYTOSIS 1+; POLYCHROMASIA FEW
[2020-04-28 20:01] LABS: TROPONIN I 1.31 NG/ML (0.0-0.05)
[2020-04-28] MEDS: phenylephrine inj 50 MG in normal saline 250ml IV soln 245 ML IV PRN (20:02)
[2020-04-28 20:10] LABS: ABG OXYGEN SATURATION 94.5 % (94-97); ABG PCO2 (T) 22.7 mmHg (35.0-48.0); ABG PO2 (T) 70.7 mmHg (75.0-100.0); ALLEN'S TEST POSITIVE; FCOHb 0.6 % (0.0-3.9); FMetHb 0.1 % (0.0-1.5); FO2Hb 93.8 % (94-97); PATIENT TEMPERATURE 35.4; TOTAL HEMOGLOBIN 11.9 G/dl (14.0-18.0)
--- NOTE | 2020-04-28 20:13 | NUR ---
Problems reprioritized. Patient report given, questions answered & plan of care reviewed with Mac RN.
[2020-04-28] MEDS: insulin glargine (Lantus) pen - multi-dose SQ SCH (21:29)
--- NOTE | 2020-04-28 22:00 | NUR ---
Patient in room CICU 2013. I have received report from Mac RN and had the opportunity to ask questions and assume patient care.
[2020-04-29] VITALS (20 sets, daily range): BP systolic 73–115; BP diastolic 37–85
[2020-04-29] MEDS: phenylephrine inj 50 MG in normal saline 250ml IV soln 245 ML IV PRN ×2 (02:40→07:27)
[2020-04-29] MEDS: normal saline 1000ml 1,000 ML IV SCH ×2 (02:51→10:02)
[2020-04-29 05:22] LABS: ALANINE AMINOTRANSFERASE 451 U/L (12-78); ALBUMIN 3.8 G/DL (3.4-5.0); ALKALINE PHOSPHATASE 63 IU/L (46-116); ANION GAP 20 (8-16); ASPARTATE AMINO TRANSFERASE 494 U/L (10-37); BILIRUBIN,TOTAL 5.3 MG/DL (0.1-1.0); BLOOD UREA NITROGEN 117 MG/DL (7-18); BUN/CREATININE RATIO 34.8 (5.4-32.0); CALCIUM 8.6 MG/DL (8.5-10.1); CHLORIDE 92 MMOL/L (99-107); CREATININE 3.36 MG/DL (0.60-1.10); GLUCOSE 110 MG/DL (70-104); SODIUM 127 MMOL/L (135-145); TOTAL CARBON DIOXIDE 15.2 MMOL/L (24-32); eGFR 18 ML/MIN
[2020-04-29 05:23] LABS: ALBUMIN/GLOBULIN RATIO 1.5 (1.1-1.5); PHOSPHORUS 7.8 MG/DL (2.3-4.5); POTASSIUM 5.8 MMOL/L (3.5-5.1); TOTAL PROTEIN 6.3 G/DL (6.4-8.2)
[2020-04-29 05:56] LABS: TROPONIN I 3.92 NG/ML (0.0-0.05)
--- NOTE | 2020-04-29 06:00 | NUR ---
Received critical Troponin of 3.92. SET UP [employer] Meet notified. Orders received for PT and PTT, EKG, and repeat Troponin in 6hrs x2. Will continue to monitor.
--- NOTE | 2020-04-29 06:48 | NUR ---
Problems reprioritized. Patient report given, questions answered & plan of care reviewed with Jefferson ADDISON.
[2020-04-29 07:25] LABS: PARTIAL THROMBOPLASTIN TIME 64 SECONDS (22-32)
[2020-04-29] MEDS: docusate sod 100mg capsule PO SCH (07:29)
[2020-04-29] MEDS: lactobacillus rhamnosus 10,000 MMU CELLS/CAPSULE PO SCH (07:29)
[2020-04-29] MEDS: nystatin 15 GM powder TP SCH (07:29)
[2020-04-29] MEDS: K and/or MAG REPLACEMENT MC SCH ×2 (07:29)
[2020-04-29 08:01] LABS: EOSINOPHILS % (AUTO) 0 % (0-6)
[2020-04-29 08:02] LABS: BASOPHILS % (AUTO) 0.1 % (0-1); LYMPHOCYTES # (AUTO) 0.5 X10'3 (1.1-4.8); LYMPHOCYTES % (AUTO) 2.1 % (21-51); MEAN PLATELET VOLUME 9.9 FL (7.4-10.4); MONOCYTES # (AUTO) 0.6 X10'3 (0-0.9); MONOCYTES % (AUTO) 2.6 % (2-12); NEUTROPHILS # (AUTO) 21.3 X10'3 (1.8-7.7); NEUTROPHILS % (AUTO) 95.2 % (42-75); PLATELET COUNT 106 X10'3 (140-440); WHITE BLOOD COUNT 22.4 X10'3 (4.5-11.0)
[2020-04-29 08:16] LABS: HEMATOCRIT 33.4 % (42.0-52.0); HEMOGLOBIN 10.7 g/dl (14.0-17.9); MEAN CORPUSCULAR HEMOGLOBIN 26.3 PG (27.0-31.0); MEAN CORPUSCULAR HGB CONC 31.9 g/dL (33.0-36.5); MEAN CORPUSCULAR VOLUME 82.5 FL (78-98); RED BLOOD COUNT 4.05 X10'6 (4.70-6.10); RED CELL DISTRIBUTION WIDTH 19.8 % (11.5-14.5)
[2020-04-29 08:57] LABS: HBSAG SCREEN Negative (Negative); HEP A AB, IGM Negative (Negative); HEPATITIS C ANTIBODY <0.1 s/co ratio (0.0-0.9)
[2020-04-29] MEDS ORDERED: PHENYLephrine 100 MG in NS 250ml IV soln IV SCH ×2 (09:45→10:05)
--- NOTE | 2020-04-29 09:59 | NUR ---
[facility] LINE INFORMATION: REF: [id number] LOT: [id number] EXP: 05/03/2020
[2020-04-29] MEDS ORDERED: sodium bicarbonate (8.4%) inj. 150 MEQ in dextrose 5%-water 1,000 ML IV SCH (11:00)
[2020-04-29 11:36] LABS: TROPONIN I 7.17 NG/ML (0.0-0.05)
[2020-04-29] MEDS ORDERED: TRAM50TA2 PO (11:45)
[2020-04-29] MEDS ORDERED: RIVA15TA PO (11:45)
[2020-04-29] MEDS ORDERED: NORepinephrine 8mg/ 250ml NS 250 ML IV PRN (15:10)
[2020-04-29] MEDS ORDERED: NORepinephrine 8mg/ 250ml NS 250 ML IV ONE ×2 (15:13→19:11)
[2020-04-29] MEDS ORDERED: magnesium 2GM in 50ml NS 50 ML IV ONE (16:00)
[2020-04-29 16:23] LABS: MAGNESIUM 2.6 MG/DL (1.5-2.4)
[2020-04-29] MEDS ORDERED: NORepinephrine 32 MG in Normal Saline 250ml IV soln IV SCH (17:00)
--- NOTE | 2020-04-29 17:52 | NUR ---
Belongings packed; clothes, glasses, phone, and speeder frame tender
[2020-04-29] MEDS: rivaroxaban 15mg tablet PO SCH (18:01)
--- NOTE | 2020-04-29 18:30 | NUR ---
Patient in room CICU 2013. I have received report from Jefferson ADDISON and had the opportunity to ask questions and assume patient care.
--- NOTE | 2020-04-29 19:23 | NUR ---
[facility] crew as well as EMS at bedside to [place] [facility] Report given to Flight Nurse and EMT. PT was placed on their transport monitor. PT has Levophed infusing @ 0.5mcg/kg/min. A bag of Levo was pulled from [employer] by CRN and given to Flight crew in case the need were to arise for the medication to be titrated up, it was taken out as an overstock med. PT was transferred from ICU bed to [facility]. Tolerated well. PT's nephew Gurjit was called to inform him PT was on his way [place] [facility]. I also provided him with the [facility] phone number
== END 2020-04-29 19:30 | disposition short-term general hospital (02) | DRG 280 ==
LOC: ER 19:03 → ED HOLD 22:05 → PCU 3S 22:42 → CICU 2S 04-28 19:45
PROVIDERS: ADMIT Family Medicine; ATTEND Family Medicine
PROC: 3E0234Z Introduction of Serum, Toxoid and Vaccine into Muscle, Percutaneous Approach (ICD-10-PCS; principal; 2020-04-22)
DX: T82.857A Stenosis of other cardiac prosthetic devices, implants and grafts, initial encounter (principal); I21.4 Non-ST elevation (NSTEMI) myocardial infarction; G93.41 Metabolic encephalopathy; I50.43 Acute on chronic combined systolic (congestive) and diastolic (congestive) heart failure; D68.9 Coagulation defect, unspecified; I13.0 Hypertensive heart and chronic kidney disease with heart failure and stage 1 through stage 4 chronic kidney disease, or unspecified chronic kidney disease; I48.92 Unspecified atrial flutter; N17.9 Acute kidney failure, unspecified; E87.1 Hypo-osmolality and hyponatremia; E87.2 Acidosis; E87.5 Hyperkalemia; D64.9 Anemia, unspecified; E11.22 Type 2 diabetes mellitus with diabetic chronic kidney disease; E78.5 Hyperlipidemia, unspecified; I08.0 Rheumatic disorders of both mitral and aortic valves; I25.10 Atherosclerotic heart disease of native coronary artery without angina pectoris; I27.20 Pulmonary hypertension, unspecified; J45.909 Unspecified asthma, uncomplicated; I95.9 Hypotension, unspecified; K75.9 Inflammatory liver disease, unspecified; N18.9 Chronic kidney disease, unspecified; W18.39XA Other fall on same level, initial encounter; Z20.828 Contact with and (suspected) exposure to other viral communicable diseases; Y93.89 Activity, other specified; Y92.89 Other specified places as the place of occurrence of the external cause; Y99.8 Other external cause status; Z79.01 Long term (current) use of anticoagulants; Z95.1 Presence of aortocoronary bypass graft; Z95.3 Presence of xenogenic heart valve; Z23 Encounter for immunization
CPT/HCPCS: 36415; 36573; 36600; 70450; 71045; 76700; 76705; 76775; 76937; 78582; 80048; 80053; 80061; 80069; 80074; 81001; 82140; 82570; 82803; 82948; 83036; 83605; 83735; 83880; 84100; 84132; 84156; 84300; 84443; 84484; 85007; 85008; 85018; 85025; 85610; 85730; 87040; 87081; 87207; 87635; 93005; 93306; 94667; 94760; 97110; 97112; 97116; 97161; 97530; 99285; A9539; A9540; G0378; J0696; J1250; J1644; J1815; J1940; J2270; J2370; J2405; J7030; J7050; P9047